=== PATIENT | male | born 1940 | race Caucasian/White ===

== ENCOUNTER 2018-07-01 11:50 | Inpatient (IN) ==
[2018-07-01] MEDS ORDERED: Melatonin 3 MG TABLET PO PRN (15:43)
[2018-07-01] MEDS ORDERED: Acetaminophen 325 MG TABLET PO PRN (15:43)
[2018-07-01] MEDS: Ipratropium/Albuterol Neb 3 ML IH SCH ×3 (16:51→23:48)
[2018-07-01] MEDS: Furosemide 40 MG TABLET PO SCH (17:00)
[2018-07-01] MEDS ORDERED: *HR* Warfarin 2 MG TABLET PO SCH (18:00)
[2018-07-01] MEDS ORDERED: traZODone 50 MG TABLET PO PRN (21:00)
[2018-07-01] MEDS: Gabapentin 100 MG CAPSULE PO SCH (21:27)
[2018-07-02] MEDS: Ipratropium/Albuterol Neb 3 ML IH SCH ×3 (04:00→11:45)
[2018-07-02 06:23] LABS: Eosinophils # 0.3 K/mcL (0.0-0.6); Hematocrit 40.6 % (37.5-50.1); Hemoglobin 12.6 g/dL (12.9-16.9); Mean Corpuscular Hemoglobin 28.6 pg (28.0-33.3); Mean Corpuscular Volume 92.1 fL (83.0-100.0); Mean Platelet Volume 9.3 fL (9.4-12.4); Platelet Count 236 K/mcL (140-400); Red Blood Count 4.41 M/mcL (4.19-5.50); Red Cell Distribution Width 18.9 % (11.5-14.5)
[2018-07-02 06:33] LABS: INR 1.7; Prothrombin Time 19.2 Seconds (9.4-12.1)
[2018-07-02 06:36] LABS: Activated Partial Thrombo Time 41.2 Seconds (26.0-36.0)
[2018-07-02 06:43] LABS: BUN/Creatinine Ratio 9 (6-26); Blood Urea Nitrogen 10 mg/dL (8-23); Calcium 8.5 mg/dL (8.6-10.3); Carbon Dioxide 34 mEq/L (23-29); Chloride 98 mEq/L (98-107); Glucose 105 mg/dL (70-105); Osmolality,Calculated 285 (280-300); Sodium 138 mEq/L (136-145); eGFR For Non-African Americans > 60 (> 60)
[2018-07-02 07:33] LABS: Lymphocytes # 1.2 K/mcL (0.6-4.6); Monocytes # 0.9 K/mcL (0.0-1.3); Neutrophils # 4.2 K/mcL (1.6-8.9)
[2018-07-02 07:39] LABS: Anisocytosis 1+ (Not Present)
[2018-07-02 07:40] LABS: Hypochromasia Present (Not Present); Platelet Estimate Normal (Normal); Polychromasia 1+ (Not Present); Toxic Granulation Present (Not Present)
[2018-07-02] MEDS: Multivit/Ca/Min/Fe/FA 1 TAB TABLET PO SCH (10:21)
[2018-07-02] MEDS: Furosemide 40 MG TABLET PO SCH (10:21)
[2018-07-02] MEDS: Folic Acid 1 MG TABLET PO SCH (10:21)
[2018-07-02] MEDS: *HR* Amiodarone 200 MG TABLET PO SCH (10:21)
[2018-07-02] MEDS: Aspirin 81 MG TAB.CHEW PO SCH (10:21)
[2018-07-02] MEDS: Cholecalciferol (D-3) 1,000 UNIT TABLET PO SCH (10:21)
[2018-07-02] MEDS: Vitamin B Complex/Vit C/Vit E 1 EACH TABLET PO SCH (10:21)
--- NOTE | 2018-07-02 13:19 | Internal Med History&Physical ---
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 And isosorbide and Lanoxin. (2) Paroxysmal A-fib Current visit: No Status: Chronic Continue Coumadin and monitor PT/INR. (3) COPD with emphysema Current visit: No Status: Acute Continue duo nebs but change to prn. Add Symbicort. Order chest CT to follow- up on abnormality seen October 2017. Qualifiers: Emphysema type: centrilobular Qualified Code(s): J43.2 - Centrilobular emphysema (4) CAD (coronary artery disease) Current visit: No Status: Chronic Status post [facility] May 2018 with CHRISTINE in mid LAD. Continue aspirin and Plavix. Add Imdur. Qualifiers: Coronary Disease-Associated Artery/Lesion type: [place] artery [place] vs. transplanted heart: [place] heart Associated angina: angina presence unspecified Qualified Code(s): I25.10 - Atherosclerotic heart disease of [place] coronary artery without angina pectoris (5) Hypomagnesemia Current visit: No Status: Acute Check magnesium level in a.m. (6) Anemia Current visit: Yes Status: Acute Order anemia testing in a.m. Qualifiers: Anemia type: unspecified type Qualified Code(s): D64.9 - Anemia, unspecified Internal Medicine - H&P: HPI Chief complaint: CHF, AF with RVR Admitted From: Hospital to Hospital Transfer Plans for Post Hospital Care: Home History of present illness: Mr. Antoine is a 77 year old male who was transferred to [facility] swing bed after [facility] stay June 21-July 01 after admission for AF with RVR, acute respiratory insufficiency, and exacerbation of heart failure. He had LHC which showed LMCA free of disease, LAD with 70% stenosis in the midportion with CHRISTINE stent placement, circumflex and first marginal free of disease, and 50% stenosis in the mid RCA. He was admitted to [facility] swing bed for ongoing care needs prior to returning to independent living. He has chronic atrial fibrillation and is on Coumadin. Cardioversion was attempted recently with inability to maintain NSR. He has been continued on amiodarone. Aspirin and Plavix been prescribed for recent stent placement. He denies hypertension. Echocardiogram 05/24/2018 showed LVEF of 45%. There was indeterminate diastolic function. There was mild tricuspid regurgitation and mild pulmonary hypertension with RVSP estimate not recorded. There was biatrial enlargement. The interventricular septum thickness was elevated at 1.18 cm. He has had remote AAA repair. He denies DVT or pulmonary embolus. Past Med Surg Social Fam HX - Past Medical History Medical history: aortic aneurysm, arthritis, CHF, COPD, coronary artery disease , RA, renal disease Additional medical history: hydrocele Psychiatric history: no psych history - Past Surgical History Surgical History: non-contributory Additional surgical history: AAA repair - Social History Smoking Status: Former smoker Smokeless Tobacco Status: No Alcohol use: none Drug use: none - Family History Father Family Member Ethnicity: Non- Living Status: Hx Family Endocrine Disorder: Yes (DM) Mother Family Member Ethnicity: Non- Living Status: Hx Family Endocrine Disorder: Yes (DM) Brother Family Member Ethnicity: Non- Living Status: Still Living Sister Family Member Ethnicity: Non- Living Status: Still Living Son Adopted: No Family Member Ethnicity: Non- Living Status: Still Living Hx Family Cardiac Disorders: No Hx Family Respiratory Disorders: No Hx Family Cancer: Yes Hx Family GI Disorders: No Hx Family Endocrine Disorder: No Hx Family Neuromuscular Disorders: No Hx Family Neurologic Disorders: No Hx Family HEENT Disorders: No Hx Family Autoimmune Disorders: No Internal Medicine - H&P: Meds Aspirin 81 mg PO DAILY #0 11/29/17 [History] Calcium Carbonate [Calcium] 600 mg PO DAILY 11/29/17 [History] Cholecalciferol (D-3) [Vitamin D] 5,000 unit PO SA #0 11/29/17 [History] Ferrous Sulfate 325 mg PO DAILY 11/29/17 [History] Folic Acid 1 mg PO DAILY 11/29/17 [History] Methotrexate [Otrexup] 7.5 mg PO WE 11/29/17 [History] Mv-Mn/FA/Vit K/Lycop/Lut/Coq10 [Daily Multivitamin Capsule] 1 tab PO DAILY #0 [History] Vitamin B Complex [B Complex] 1 tab PO DAILY #0 11/29/17 [History] Warfarin [Coumadin] 1 mg PO TUSA #0 11/29/17 [History] Melatonin [Melatin] 9 mg PO HS PRN 02/23/18 [History] Warfarin [Coumadin] 2 mg PO SUMOWETHFR 02/23/18 [History] traZODone [TraZODone] 50 - 100 mg PO HS PRN 02/23/18 [History] Acetaminophen [Tylenol] 650 mg PO Q6HR PRN tablet 02/25/18 [Rx] GuaiFENesin ER [Mucinex] 600 mg PO BID PRN tbbp.12hr 02/25/18 [Rx] Ipratropium/Albuterol Neb [Duoneb] 3 ml IH [id number] inhsol 02/25/18 [Rx] Amiodarone [Cordarone] 200 mg PO DAILY 06/04/18 [History] Atorvastatin [Lipitor] 40 mg PO HS 06/04/18 [History] Furosemide [Lasix] 40 mg PO BID 06/04/18 [History] Gabapentin [Neurontin] 200 mg PO HS 06/04/18 [History] Potassium Chloride [K-Tab ER] 40 meq PO BID 06/04/18 [History] Clopidogrel [Plavix] 75 mg PO DAILY 30 Days #30 tablet 07/01/18 [Rx] 3 Allergy/AdvReac Type Severity Reaction Status Date / Time sulfamethoxazole AdvReac Itching Verified 06/21/18 14:23 [From Bactrim] trimethoprim [From Bactrim] AdvReac Itching Verified 06/21/18 14:23 All Systems PM: A 10-system review of systems was performed and is negative for pertinent findings except as documented above in the HPI. Review of systems: Gen.: His weight has increased from 111.8 kg on 11/29/2017 to 118.189 kg today. Cardiovascular: As per history of present illness Respiratory: He smoked from age [age] up to one and half packs per day. He reports changing to cigars the last few years of smoking. PFTs done 04/06/2018 showed FVC 57% predicted, FEV1 43% predicted, FEV1/FVC 54%, MVV 48% predicted, RV 82% predicted, TLC 67% predicted, and DLCO (uncorrected)27%. He reports using oxygen at bedtime. GI: He denies disorders of his liver gallbladder or exocrine pancreas : He denies hematuria dysuria or kidney stones Neurologic: He denies large distribution strokes or seizures. Endocrine: He denies diabetes thyroid disease or hyperlipidemia Hematology/oncology: He has anemia on labs in the past week. He denies internal malignancies or blood disorders. Psychiatric: He has depression but denies anxiety other mental health issues [place] skeletal: He has DJD and history of rheumatoid arthritis. He denies gout or other bone joint or muscle disorders. - Constitutional Vitals: Temp Pulse Resp BP Pulse Ox 98.2 F 93 18 131/80 90 07/02/18 07:06 07/02/18 07:06 07/02/18 07:06 07/02/18 07:06 07/02/18 11:46 Exam: Gen.: He is a well-developed well-nourished male lying in bed who appears dyspneic at rest. HEENT: Head is atraumatic and normocephalic. Eyes: EOMI. There is no scleral icterus. Mouth: Mucosa is moist. Neck: Supple and nontender. There is no thyromegaly or adenopathy noted. Heart: Regular without murmurs gallops or ectopics Lungs: Has diminished breath sounds diffusely. No wheezes egophony or inspiratory crackles are heard. Abdomen: Soft and nontender. No masses or guarding are noted. Extremities: He has severe chronic venous stasis pigmentation changes of his lower legs and feet. He has woody edema and 1-2+ pitting edema of his legs and dorsum of the feet. He has dependent edema of his arms. The left arm is noticeably more edematous than the right. Dorsalis pedis and posterior tibial pulses are not palpable. Neurologic: Mental status: He is talkative and seems to be a reliable historian. Cranial nerves: Smile is symmetric. Forehead wrinkles bilaterally. Tongue protrudes midline. EOMI. He is slightly hard of hearing. Motor: There is no pronator drift. Cerebellar: Finger to nose is intact bilaterally. Skin: Warm and dry. He has leg discoloration with woody edema as per above. Internal Med - H&P Results - Labs CBC & Chem 7: 07/02/18 06:05 07/02/18 06:05 Labs: Short CBC 07/02/18 Range/Units 06:05 WBC 6.7 (4.3-11.1) K/mcL Hgb 12.6 L (12.9-16.9) g/dL Hct 40.6 (37.5-50.1) % Plt Count 236 (140-400) K/mcL Neutrophils # 4.2 (1.6-8.9) K/mcL BMP 07/02/18 06:05 Sodium 138 Potassium 4.0 Chloride 98 Carbon Dioxide 34 H BUN 10 Creatinine 1.07 Glucose 105 Calcium 8.5 L
[2018-07-02] MEDS ORDERED: Ipratropium/Albuterol Neb 3 ML IH PRN (13:44)
[2018-07-02] MEDS: Isosorbide MONOnitrate (24 HR) 30 MG TAB.ER.24H PO SCH (16:24)
[2018-07-02] MEDS: *HR* Digoxin 0.125 MG TABLET PO SCH (16:25)
[2018-07-02] MEDS: Bumetanide 1 MG TABLET PO SCH (16:28)
[2018-07-02] MEDS: Oxymetazoline Nasal SPRAY BOTTLE NS SCH (16:34)
[2018-07-02] MEDS: *HR* Warfarin 5 MG TABLET PO SCH (17:12)
[2018-07-02] MEDS: Gabapentin 100 MG CAPSULE PO SCH (20:17)
[2018-07-03 06:16] LABS: Basophils % 0.3 %; Eosinophils # 0.4 K/mcL (0.0-0.6); Hematocrit 39.3 % (37.5-50.1); Hemoglobin 12.2 g/dL (12.9-16.9); Immature Granulocytes % 0.6 % (0-4); Lymphocytes # 1.9 K/mcL (0.6-4.6); Lymphocytes % 20.9 %; Mean Corpuscular Hemoglobin 28.8 pg (28.0-33.3); Mean Corpuscular Volume 92.9 fL (83.0-100.0); Mean Platelet Volume 9.9 fL (9.4-12.4); Monocytes # 1.5 K/mcL (0.0-1.3); Monocytes % 16.4 %; Neutrophils # 5.3 K/mcL (1.6-8.9); Platelet Count 261 K/mcL (140-400); Red Blood Count 4.23 M/mcL (4.19-5.50); Red Cell Distribution Width 18.8 % (11.5-14.5); Segmented Neutrophils % 57.8 %
[2018-07-03] MEDS: Oxymetazoline Nasal SPRAY BOTTLE NS SCH ×2 (06:28→18:37)
[2018-07-03] MEDS: Bumetanide 1 MG TABLET PO SCH ×2 (06:28→18:40)
[2018-07-03] MEDS: *HR* Amiodarone 200 MG TABLET PO SCH (08:21)
[2018-07-03] MEDS: Aspirin 81 MG TAB.CHEW PO SCH (08:21)
[2018-07-03] MEDS: Multivit/Ca/Min/Fe/FA 1 TAB TABLET PO SCH (08:22)
[2018-07-03] MEDS: Folic Acid 1 MG TABLET PO SCH (08:22)
[2018-07-03] MEDS: Vitamin B Complex/Vit C/Vit E 1 EACH TABLET PO SCH (08:22)
[2018-07-03] MEDS: Cholecalciferol (D-3) 1,000 UNIT TABLET PO SCH (08:22)
[2018-07-03] MEDS: *HR* Digoxin 0.125 MG TABLET PO SCH ×2 (08:25→08:35)
[2018-07-03] MEDS: Isosorbide MONOnitrate (24 HR) 30 MG TAB.ER.24H PO SCH (08:33)
[2018-07-03 10:53] LABS: % Iron Saturation 9 % (20-55); Iron 21 mcg/dL (65-175); Transferrin 166 mg/dL (203-362)
[2018-07-03 11:06] LABS: Ferritin 405 ng/mL (20-250)
[2018-07-03 11:11] LABS: Folate 13.8 ng/mL (3.0-16.0)
[2018-07-03] MEDS ORDERED: Levofloxacin 750 MG/150 ML 750 MG/150 ML BAG IVPB ONE (14:25)
[2018-07-03] MEDS ORDERED: Piperacillin/Tazobactam 3.375 GM in 0.9 % Sodium Chloride Mini Bag 100 ML IVPB SCH ×2 (14:30→18:00)
[2018-07-03] MEDS ORDERED: *HR* Warfarin 2 MG TABLET PO SCH (18:00)
--- NOTE | 2018-07-03 18:21 | Discharge Summary ---
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 transplanted heart: [place] heart Associated angina: angina presence unspecified Qualified Code(s): I25.10 - Atherosclerotic heart disease of [place] coronary artery without angina pectoris (7) Hypomagnesemia Priority: Secondary Status: Acute (8) Anemia Priority: Secondary Status: Acute Qualifiers: Anemia type: unspecified type Qualified Code(s): D64.9 - Anemia, unspecified Hospital course: Mr. Antoine is a 77 year old male who was transferred to [facility] swing bed after [facility] stay June 21-July 01 after admission for AF with RVR, acute respiratory insufficiency, and exacerbation of heart failure. He had LHC which showed LMCA free of disease, LAD with 70% stenosis in the midportion with CHRISTINE stent placement, circumflex and first marginal free of disease, and 50% stenosis in the mid RCA. He was admitted to [facility] swing bed for ongoing care needs prior to returning to independent living. Initial orders were written by the discharging physician at [facility]. I saw him on July 02 and performed a swing bed history and physical. Chest CT was done to further evaluate abnormality seen on October [address] showed superior segment right lower lobe mass with central cavitation measuring 4.5 x 4.6 cm suspicious for neoplasm. There was multifocal bilateral airspace disease likely representing pneumonia in the right middle and right lower lobes. I discussed the CT findings with patient and his family on July 03. He wished to be transferred to [facility] for further workup for lung cancer. He was started on IV Zosyn and Levaquin for pneumonia following drawing blood cultures while at [facility]. He was changed from Lasix to Bumex. Lanoxin and isosorbide were started. - Time Spent with Patient Total time spent providing and/or coordinating discharge services: - Discharge Medications Home Medications: Aspirin 81 mg PO DAILY #0 11/29/17 [History] Calcium Carbonate [Calcium] 600 mg PO DAILY 11/29/17 [History] Cholecalciferol (D-3) [Vitamin D] 5,000 unit PO SA #0 11/29/17 [History] Ferrous Sulfate 325 mg PO DAILY 11/29/17 [History] Folic Acid 1 mg PO DAILY 11/29/17 [History] Methotrexate [Otrexup] 7.5 mg PO WE 11/29/17 [History] Mv-Mn/FA/Vit K/Lycop/Lut/Coq10 [Daily Multivitamin Capsule] 1 tab PO DAILY #0 [History] Vitamin B Complex [B Complex] 1 tab PO DAILY #0 11/29/17 [History] Warfarin [Coumadin] 1 mg PO TUSA #0 11/29/17 [History] Melatonin [Melatin] 9 mg PO HS PRN 02/23/18 [History] Warfarin [Coumadin] 2 mg PO SUMOWETHFR 02/23/18 [History] traZODone [TraZODone] 50 - 100 mg PO HS PRN 02/23/18 [History] Acetaminophen [Tylenol] 650 mg PO Q6HR PRN tablet 02/25/18 [Rx] GuaiFENesin ER [Mucinex] 600 mg PO BID PRN tbbp.12hr 02/25/18 [Rx] Ipratropium/Albuterol Neb [Duoneb] 3 ml IH [id number] inhsol 02/25/18 [Rx] Amiodarone [Cordarone] 200 mg PO DAILY 06/04/18 [History] Atorvastatin [Lipitor] 40 mg PO HS 06/04/18 [History] Furosemide [Lasix] 40 mg PO BID 06/04/18 [History] Gabapentin [Neurontin] 200 mg PO HS 06/04/18 [History] Potassium Chloride [K-Tab ER] 40 meq PO BID 06/04/18 [History] Clopidogrel [Plavix] 75 mg PO DAILY 30 Days #30 tablet 07/01/18 [Rx] Allergies/Adverse Reactions: 3 Allergy/AdvReac Type Severity Reaction Status Date / Time sulfamethoxazole AdvReac Itching Verified 06/21/18 14:23 [From Bactrim] trimethoprim [From Bactrim] AdvReac Itching Verified 06/21/18 14:23 Date of admission: 07/01/18 13:40 Primary care physician: Mike Villar MD Consults: 07/01/18 15:32 Consult to Occupational Therapy [CONS] Routine Comment: eval, develop, and implement POC Reason for Consult: eval, develop, and implement POC Does patient have active BEDREST order?: No Is patient medically & hemodynamically stable?: Yes Consult to Physical Therapy [CONS] Routine Comment: eval, develop, and implement POC Reason for Consult: eval, develop, and implement POC Does patient have active BEDREST order?: No Is patient medically & hemodynamically stable?: Yes Consult to Library [employer] [CONS] Routine Reason for SW Consult: will need HH - Constitutional Vitals: Temp Pulse Resp BP Pulse Ox 99 F 72 20 97/58 93 07/03/18 06:43 07/03/18 11:19 07/03/18 06:43 07/03/18 06:43 07/03/18 11:19 - Patient Status Disposition: Transfer Other - Discharge Instructions
[2018-07-03] MEDS: *HR* Warfarin 5 MG TABLET PO SCH (18:37)
[2018-07-03 19:22] VITALS: BP 98/60
[2018-07-03] MEDS: Gabapentin 100 MG CAPSULE PO SCH (20:43)
[2018-07-04] MEDS ORDERED: *HR* Methotrexate 2.5 MG TABLET PO SCH (15:43)
== END 2018-07-03 20:06 | disposition other institution (70) | DRG 308 ==
LOC: INPPIK 13:40
PROVIDERS: ADMIT Internal Medicine; ATTEND Internal Medicine

== ENCOUNTER 2018-07-10 14:31 | Inpatient (IN) ==
[2018-07-10] MEDS: Ipratropium/Albuterol Neb 3 ML IH SCH ×2 (16:50→20:24)
[2018-07-10] MEDS: acetaZOLAMIDE 250 MG TABLET PO SCH ×2 (17:04→20:44)
[2018-07-10] MEDS: *HR* Warfarin 2 MG TABLET PO SCH (17:05)
[2018-07-10] MEDS: Furosemide 40 MG TABLET PO SCH (17:05)
[2018-07-10] MEDS: Gabapentin 100 MG CAPSULE PO SCH (20:43)
[2018-07-10] MEDS: Melatonin 3 MG TABLET PO PRN (20:44)
[2018-07-10] MEDS: traZODone 50 MG TABLET PO PRN (20:44)
[2018-07-11] MEDS: Ipratropium/Albuterol Neb 3 ML IH SCH ×7 (00:28→23:55)
[2018-07-11] MEDS: acetaZOLAMIDE 250 MG TABLET PO SCH ×3 (08:48→20:52)
[2018-07-11] MEDS: *HR* Amiodarone 200 MG TABLET PO SCH (08:48)
[2018-07-11] MEDS: Vitamin B Complex/Vit C/Vit E 1 EACH TABLET PO SCH (08:48)
[2018-07-11] MEDS: Aspirin 81 MG TAB.CHEW PO SCH (08:48)
[2018-07-11] MEDS: Multivit/Ca/Min/Fe/FA 1 TAB TABLET PO SCH (08:49)
[2018-07-11] MEDS: Folic Acid 1 MG TABLET PO SCH (08:49)
[2018-07-11] MEDS: levoFLOXacin 250 MG TABLET PO SCH (08:49)
[2018-07-11] MEDS: Furosemide 40 MG TABLET PO SCH ×2 (08:50→16:48)
[2018-07-11] MEDS: *HR* Methotrexate 2.5 MG TABLET PO SCH (08:52)
[2018-07-11] MEDS: *HR* Warfarin 2 MG TABLET PO SCH (16:48)
--- NOTE | 2018-07-11 18:22 | Internal Med History&Physical ---
Date of Encounter: 07/11/18 Time of Encounter: 17:50 Assessment and Plan (1) Multifocal pneumonia Current visit: No Status: Acute Continue Levaquin and Augmentin to complete 14 day course. Will add lactobacillus. (2) Paroxysmal A-fib Current visit: No Status: Chronic Presently in normal sinus rhythm. Continue amiodarone. Continue Coumadin and monitor pro times. 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 Start ferrous sulfate with vitamin C in a.m. Qualifiers: Anemia type: unspecified type Qualified Code(s): D64.9 - Anemia, unspecified (5) CAD (coronary artery disease) Current visit: No Status: Chronic LHC with CHRISTINE stent in LAD May 2018. Continue aspirin and Plavix. Qualifiers: Coronary Disease-Associated Artery/Lesion type: [place] artery [place] vs. transplanted heart: [place] heart Associated angina: without angina Qualified Code(s): I25.10 - Atherosclerotic heart disease of [place] coronary artery without angina pectoris (6) Physical deconditioning Current visit: No Status: Acute PT and OT evaluations with ongoing intervention will be done Internal Medicine - H&P: HPI Chief complaint: Cavitary pneumonia Admitted From: Hospital to Hospital Transfer Plans for Post Hospital Care: Home History of present illness: Mr. Antoine is a 77 year old male who was discharged to [facility] swing bed following a July 03 [facility] hospitalization. He was transferred to [facility] June after the CT showed superior segment right lower lobe mass with central cavitation measuring 4.5 x 4.6 cm suspicious for neoplasm. At [facility] he underwent bronchoscopy with BAL. Cultures and cytology were negative. Was given empiric IV vancomycin and Levaquin and later changed to IV Zosyn. He was discharged to [facility] swing bed on oral Levaquin and Augmentin for 9 days to complete a 14 day treatment course. He smoked from age [age] up to one and half packs per day. He reports changing to cigars the last few years of smoking. PFTs done 04/06/2018 showed FVC 57% predicted, FEV1 43% predicted, FEV1/FVC 54%, MVV 48% predicted, RV 82% predicted, TLC 67% predicted, and DLCO (uncorrected)27%. He reports using oxygen at bedtime. Past Med Surg Social Fam HX - Past Medical History Medical history: aortic aneurysm, arthritis, CHF, COPD, coronary artery disease , RA, renal disease Additional medical history: hydrocele Psychiatric history: no psych history - Past Surgical History Surgical History: angioplasty/stent Additional surgical history: AAA repair - Social History Smoking Status: Former smoker Smokeless Tobacco Status: No Alcohol use: none Drug use: none - Family History Father Family Member Ethnicity: Non- Living Status: Hx Family Endocrine Disorder: Yes (DM) Mother Family Member Ethnicity: Non- Living Status: Hx Family Endocrine Disorder: Yes (DM) Brother Family Member Ethnicity: Non- Living Status: Still Living Sister Family Member Ethnicity: Non- Living Status: Still Living Son Adopted: No Family Member Ethnicity: Non- Living Status: Still Living Hx Family Cardiac Disorders: No Hx Family Respiratory Disorders: No Hx Family Cancer: Yes Hx Family GI Disorders: No Hx Family Endocrine Disorder: No Hx Family Neuromuscular Disorders: No Hx Family Neurologic Disorders: No Hx Family HEENT Disorders: No Hx Family Autoimmune Disorders: No Internal Medicine - H&P: Meds Aspirin 81 mg PO DAILY #0 11/29/17 [History] Calcium Carbonate [Calcium] 600 mg PO DAILY 11/29/17 [History] Cholecalciferol (D-3) [Vitamin D] 5,000 unit PO SA #0 11/29/17 [History] Ferrous Sulfate 325 mg PO DAILY 11/29/17 [History] Folic Acid 1 mg PO DAILY 11/29/17 [History] Methotrexate [Otrexup] 7.5 mg PO WE 11/29/17 [History] Mv-Mn/FA/Vit K/Lycop/Lut/Coq10 [Daily Multivitamin Capsule] 1 tab PO DAILY #0 [History] Vitamin B Complex [B Complex] 1 tab PO DAILY #0 11/29/17 [History] Warfarin [Coumadin] 1 mg PO TUSA #0 11/29/17 [History] Melatonin [Melatin] 9 mg PO HS PRN 02/23/18 [History] Warfarin [Coumadin] 2 mg PO SUMOWETHFR 02/23/18 [History] traZODone [TraZODone] 50 - 100 mg PO HS PRN 02/23/18 [History] Acetaminophen [Tylenol] 650 mg PO Q6HR PRN tablet 02/25/18 [Rx] GuaiFENesin ER [Mucinex] 600 mg PO BID PRN tbbp.12hr 02/25/18 [Rx] Ipratropium/Albuterol Neb [Duoneb] 3 ml IH [id number] inhsol 02/25/18 [Rx] Amiodarone [Cordarone] 200 mg PO DAILY 06/04/18 [History] Atorvastatin [Lipitor] 40 mg PO HS 06/04/18 [History] Furosemide [Lasix] 40 mg PO BID 06/04/18 [History] Gabapentin [Neurontin] 200 mg PO HS 06/04/18 [History] Potassium Chloride [K-Tab ER] 40 meq PO BID 06/04/18 [History] Clopidogrel [Plavix] 75 mg PO DAILY 30 Days #30 tablet 07/01/18 [Rx] acetaZOLAMIDE [Diamox] 125 mg PO TID #90 tablet 07/09/18 [Rx] Amoxicillin/Clavulanate [Augmentin] 875 mg PO BIDWM 9 Days #18 tablet 07/10/18 [ Rx] levoFLOXacin [Levaquin] 750 mg PO DAILY 9 Days #9 tablet 07/10/18 [Rx] 3 Allergy/AdvReac Type Severity Reaction Status Date / Time sulfamethoxazole AdvReac Itching Verified 07/03/18 21:47 [From Bactrim] trimethoprim [From Bactrim] AdvReac Itching Verified 07/03/18 21:47 All Systems PM: A 10-system review of systems was performed and is negative for pertinent findings except as documented above in the HPI. Review of systems: Review of systems from his recent [facility] hospitalization were reviewed and revised as below. Gen.: His weight has increased from 111.8 kg on 11/29/2017 to 113.6 kg today. Cardiovascular: He denies hypertension. He had LHC during his May 2018 [facility] stay which showed LMCA free of disease, LAD with 70% stenosis in the midportion with CHRISTINE stent placement, circumflex and first marginal free of disease, and 50 % stenosis in the mid RCA. He has paroxysmal atrial fibrillation and is on Coumadin. Cardioversion was attempted recently with inability to maintain NSR. He has been continued on amiodarone. Aspirin and Plavix been prescribed for recent stent placement. Echocardiogram 05/24/2018 showed LVEF of 45%. There was indeterminate diastolic function. There was mild tricuspid regurgitation and mild pulmonary hypertension with RVSP estimate not recorded. There was biatrial enlargement. The interventricular septum thickness was elevated at 1.18 cm. He has had remote AAA repair. He denies DVT or pulmonary embolus. Respiratory: He smoked from age [age] up to one and half packs per day. He reports changing to cigars the last few years of smoking. PFTs done 04/06/2018 showed FVC 57% predicted, FEV1 43% predicted, FEV1/FVC 54%, MVV 48% predicted, RV 82% predicted, TLC 67% predicted, and DLCO (uncorrected)27%. He reports using oxygen at bedtime. GI: He denies disorders of his liver gallbladder or exocrine pancreas : He denies hematuria dysuria or kidney stones Neurologic: He denies large distribution strokes or seizures. Endocrine: He denies diabetes thyroid disease or hyperlipidemia Hematology/oncology: He has anemia but denies internal malignancies or blood disorders. Psychiatric: He has depression but denies anxiety other mental health issues [place] skeletal: He has DJD and history of rheumatoid arthritis. He denies gout or other bone joint or muscle disorders. - Constitutional Vitals: Temp Pulse Resp BP Pulse Ox 98.3 F 82 18 97/55 94 07/11/18 07:18 07/11/18 15:53 07/11/18 15:53 07/11/18 15:53 07/11/18 15:53 Exam: Gen.: He is a well-developed well-nourished male resting comfortably in bed who appears in no acute distress at present time HEENT: Head is atraumatic and normocephalic. Eyes: EOMI. There is no scleral icterus. Mouth: Mucosa is moist. Neck: Supple and nontender. There is no thyromegaly or adenopathy noted. Heart: Regular without murmurs gallops or ectopics. Lungs: He has diminished breath sounds diffusely. No wheezes or crackles are heard. Abdomen: Soft and nontender. No masses or guarding are noted. Extremities: He has chronic venous stasis pigmentation changes bilaterally in his lower legs. 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 There is 2-3+ edema of his dorsum of the feet and lower legs bilaterally. He also has dependent edema around his elbows. He has mild DJD changes of his hands. There is slight ulnar deviation of the right fingers. Neurologic: Mental status: He is talkative and a good historian. Cranial nerves : Smile is symmetric. Forehead wrinkles bilaterally. Tongue protrudes midline. EOMI. Motor: There is no pronator drift. Cerebellar: Finger to nose is intact bilaterally. Skin: Warm and dry
[2018-07-11] MEDS: Ammonium Lactate 30 APPL/225 GM BOTTLE TP SCH (20:53)
[2018-07-11] MEDS: Gabapentin 100 MG CAPSULE PO SCH (20:53)
[2018-07-11] MEDS: Lactobacillus 1 EACH CAP.SPRINK PO SCH (20:53)
[2018-07-12 00:21] LABS: ABG Base Excess 7 mEq/L (-2 to 3); ABG HCO3 34 mEq/L (21-27); ABG Oxygen Saturation 94 % (95-98); ABG PCO2 58 mmHg (35-45); ABG PH 7.38 pH Units (7.32-7.45); ABG PO2 76 mmHg (85-104); ABG TCO2 36 mEq/L (20-26)
[2018-07-12] MEDS: Ipratropium/Albuterol Neb 3 ML IH SCH ×5 (04:04→20:33)
[2018-07-12] MEDS: Ascorbic Acid 500 MG TABLET PO SCH (06:14)
[2018-07-12 06:45] LABS: Basophils % 0.3 %; Eosinophils # 0.2 K/mcL (0.0-0.6); Eosinophils % 1.8 %; Hematocrit 38.1 % (37.5-50.1); Hemoglobin 11.6 g/dL (12.9-16.9); Immature Granulocytes % 0.5 % (0-4); Lymphocytes # 1.2 K/mcL (0.6-4.6); Lymphocytes % 11.6 %; Mean Corpuscular HGB Conc 30.4 g/dL (31.6-35.5); Mean Corpuscular Hemoglobin 28.2 pg (28.0-33.3); Mean Corpuscular Volume 92.5 fL (83.0-100.0); Mean Platelet Volume 9.5 fL (9.4-12.4); Monocytes # 1.1 K/mcL (0.0-1.3); Monocytes % 10.9 %; Neutrophils # 7.6 K/mcL (1.6-8.9); Platelet Count 252 K/mcL (140-400); Red Blood Count 4.12 M/mcL (4.19-5.50); Red Cell Distribution Width 19.2 % (11.5-14.5); Segmented Neutrophils % 74.9 %
[2018-07-12 07:02] LABS: Alanine Aminotransferase 22 Units/L (7-52); Albumin 2.4 g/dL (3.5-5.7); Albumin/Globulin Ratio 0.8 (1.1-2.2); Alkaline Phosphatase 73 Units/L (34-104); Aspartate Amino Transferase 27 Units/L (13-39); BUN/Creatinine Ratio 15 (6-26); Bilirubin,Total 0.7 mg/dL (0.3-1.0); Blood Urea Nitrogen 17 mg/dL (8-23); Calcium 8.4 mg/dL (8.6-10.3); Carbon Dioxide 34 mEq/L (23-29); Chloride 100 mEq/L (98-107); Glucose 100 mg/dL (70-105); Magnesium 1.9 mg/dL (1.6-2.6); Osmolality,Calculated 294 (280-300); Potassium 3.5 mEq/L (3.5-5.1); Sodium 141 mEq/L (136-145); Total Protein 5.4 g/dL (6.4-8.9); eGFR For Non-African Americans > 60 (> 60)
[2018-07-12 07:19] LABS: INR 2.9; Prothrombin Time 32.3 Seconds (9.4-12.1)
[2018-07-12] MEDS: *HR* Amiodarone 200 MG TABLET PO SCH (10:08)
[2018-07-12] MEDS: Furosemide 40 MG TABLET PO SCH ×2 (10:09→18:30)
[2018-07-12] MEDS: levoFLOXacin 250 MG TABLET PO SCH (10:09)
[2018-07-12] MEDS: Aspirin 81 MG TAB.CHEW PO SCH (10:09)
[2018-07-12] MEDS: acetaZOLAMIDE 250 MG TABLET PO SCH ×3 (10:09→20:17)
[2018-07-12] MEDS: Folic Acid 1 MG TABLET PO SCH (10:09)
[2018-07-12] MEDS: Multivit/Ca/Min/Fe/FA 1 TAB TABLET PO SCH (10:09)
[2018-07-12] MEDS: Lactobacillus 1 EACH CAP.SPRINK PO SCH ×2 (10:09→21:01)
[2018-07-12] MEDS: Vitamin B Complex/Vit C/Vit E 1 EACH TABLET PO SCH (10:09)
[2018-07-12] MEDS: Ammonium Lactate 30 APPL/225 GM BOTTLE TP SCH ×2 (10:09→21:01)
--- NOTE | 2018-07-12 15:20 | Internal Med Progress Note ---
Date of Encounter: 07/12/18 Time of Encounter: 15:10 - Assessment and plan (1) Multifocal pneumonia Current Visit: No Status: Acute Assessment and plan: July 12. Continue Levaquin and Augmentin with lactobacillus until 2017 (2) Paroxysmal A-fib Current Visit: No Status: Chronic Assessment and plan: July 12. Continue amiodarone and Coumadin. 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 Continue Lasix (4) Anemia Current Visit: No Status: Acute Assessment and plan: July 12. Continue ferrous sulfate with vitamin C Qualifiers: Anemia type: unspecified type Qualified Code(s): D64.9 - Anemia, unspecified (5) CAD (coronary artery disease) Current Visit: No Status: Chronic Assessment and plan: July 12. Continue aspirin and Plavix Qualifiers: Coronary Disease-Associated Artery/Lesion type: [place] artery [place] vs. transplanted heart: [place] heart Associated angina: without angina Qualified Code(s): I25.10 - Atherosclerotic heart disease of [place] coronary artery without angina pectoris (6) Physical deconditioning Current Visit: No Status: Acute Assessment and plan: July 12. Continue PT and OT intervention - Subjective Interval history: July 12. He has no new complaints. He had an episode of hypoxemia last evening. ABG and chest x-ray were ordered and were generally unremarkable. - Constitutional Vitals: Temp Pulse Resp BP Pulse Ox 99.1 F 91 16 86/57 94 07/12/18 07:08 07/12/18 07:08 07/12/18 12:46 07/12/18 07:08 07/12/18 13:33 Exam: He is resting comfortably in bed and appears in no acute distress. His affect is bright and cheerful. He is talkative and states he wants to stay in the hospital only until he can satisfactorily walk enough to return home. I reviewed his medications and lab results. Internal Medicine: Result - Labs CBC & Chem 7: 07/12/18 05:37 07/12/18 05:37 Labs: Short CBC 07/12/18 Range/Units 05:37 WBC 10.2 (4.3-11.1) K/mcL Hgb 11.6 L (12.9-16.9) g/dL Hct 38.1 (37.5-50.1) % Plt Count 252 (140-400) K/mcL Neutrophils # 7.6 (1.6-8.9) K/mcL BMP 07/12/18 05:37 Sodium 141 Potassium 3.5 Chloride 100 Carbon Dioxide 34 H BUN 17 Creatinine 1.17 Glucose 100 Calcium 8.4 L Liver Function 07/12/18 Range/Units 05:37 Total Bilirubin 0.7 (0.3-1.0) mg/dL AST 27 (13-39) Units/L ALT 22 (7-52) Units/L Alkaline Phosphatase 73 (34-104) Units/L Albumin 2.4 L (3.5-5.7) g/dL - ABG Interpretation ABG results: ABG ABG pH 7.38 pH Units (7.32-7.45) 07/12/18 00:18 ABG pCO2 58 mmHg (35-45) H 07/12/18 00:18 ABG pO2 76 mmHg (85-104) L 07/12/18 00:18 ABG O2 Saturation 94 % (95-98) L 07/12/18 00:18 PT/INR, D-dimer PT 32.3 Seconds (9.4-12.1) H 07/12/18 05:37 - Impressions Impressions Chest X-Ray 07/12/18 00:00 IMPRESSION: Stable cardiomegaly with suspected interstitial edema and small left pleural effusion superimposed on a background of emphysema. Right basilar opacity correlates with cavitating masslike airspace disease at the right lung base on comparison CT. D/ / Lukasz Pina / Lukasz Pina Interpreting Provider: Lukasz Pina Consult Discharge Plan - Plan Referrals: Mike Villar MD [Primary Care Provider] - 1 week
[2018-07-12] MEDS: Gabapentin 100 MG CAPSULE PO SCH (21:01)
[2018-07-13] MEDS: Furosemide 40 MG TABLET PO SCH ×2 (00:24→17:05)
[2018-07-13] MEDS: Ipratropium/Albuterol Neb 3 ML IH SCH ×4 (04:20→12:41)
[2018-07-13] MEDS: Ascorbic Acid 500 MG TABLET PO SCH (06:04)
[2018-07-13] MEDS: Folic Acid 1 MG TABLET PO SCH (07:41)
[2018-07-13] MEDS: acetaZOLAMIDE 250 MG TABLET PO SCH ×3 (07:41→21:04)
[2018-07-13] MEDS: levoFLOXacin 250 MG TABLET PO SCH (07:42)
[2018-07-13] MEDS: Multivit/Ca/Min/Fe/FA 1 TAB TABLET PO SCH (07:42)
[2018-07-13] MEDS: Ammonium Lactate 30 APPL/225 GM BOTTLE TP SCH ×2 (07:42→21:07)
[2018-07-13] MEDS: *HR* Amiodarone 200 MG TABLET PO SCH (07:42)
[2018-07-13] MEDS: Lactobacillus 1 EACH CAP.SPRINK PO SCH ×2 (07:42→21:04)
[2018-07-13] MEDS: Vitamin B Complex/Vit C/Vit E 1 EACH TABLET PO SCH (07:43)
[2018-07-13] MEDS: Aspirin 81 MG TAB.CHEW PO SCH (07:50)
[2018-07-13] MEDS ORDERED: Ipratropium/Albuterol Neb 3 ML IH PRN (15:52)
[2018-07-13] MEDS: Gabapentin 100 MG CAPSULE PO SCH (21:05)
[2018-07-14] MEDS: Ascorbic Acid 500 MG TABLET PO SCH (06:33)
[2018-07-14 06:36] LABS: Basophils % 0.3 %; Eosinophils # 0.2 K/mcL (0.0-0.6); Eosinophils % 2.3 %; Hematocrit 37.4 % (37.5-50.1); Hemoglobin 11.4 g/dL (12.9-16.9); Immature Granulocytes % 0.5 % (0-4); Lymphocytes # 1.1 K/mcL (0.6-4.6); Lymphocytes % 11.7 %; Mean Corpuscular HGB Conc 30.5 g/dL (31.6-35.5); Mean Corpuscular Volume 91.9 fL (83.0-100.0); Mean Platelet Volume 8.8 fL (9.4-12.4); Monocytes # 0.7 K/mcL (0.0-1.3); Monocytes % 7.1 %; Neutrophils # 7.5 K/mcL (1.6-8.9); Platelet Count 225 K/mcL (140-400); Red Blood Count 4.07 M/mcL (4.19-5.50); Red Cell Distribution Width 18.6 % (11.5-14.5); Segmented Neutrophils % 78.1 %
[2018-07-14 07:03] LABS: BUN/Creatinine Ratio 16 (6-26); Blood Urea Nitrogen 18 mg/dL (8-23); Calcium 8.4 mg/dL (8.6-10.3); Carbon Dioxide 29 mEq/L (23-29); Chloride 103 mEq/L (98-107); Glucose 113 mg/dL (70-105); Osmolality,Calculated 291 (280-300); Potassium 3.2 mEq/L (3.5-5.1); Sodium 139 mEq/L (136-145); eGFR For Non-African Americans > 60 (> 60)
[2018-07-14] MEDS: Furosemide 40 MG TABLET PO SCH ×2 (08:10→16:08)
[2018-07-14] MEDS: Cholecalciferol (D-3) 1,000 UNIT TABLET PO SCH (08:11)
[2018-07-14] MEDS: Lactobacillus 1 EACH CAP.SPRINK PO SCH ×2 (08:11→20:12)
[2018-07-14] MEDS: Aspirin 81 MG TAB.CHEW PO SCH (08:11)
[2018-07-14] MEDS: Folic Acid 1 MG TABLET PO SCH (08:13)
[2018-07-14] MEDS: levoFLOXacin 250 MG TABLET PO SCH (08:13)
[2018-07-14] MEDS: acetaZOLAMIDE 250 MG TABLET PO SCH ×3 (08:13→20:13)
[2018-07-14] MEDS: Multivit/Ca/Min/Fe/FA 1 TAB TABLET PO SCH (08:14)
[2018-07-14] MEDS: Vitamin B Complex/Vit C/Vit E 1 EACH TABLET PO SCH (08:14)
[2018-07-14] MEDS: *HR* Amiodarone 200 MG TABLET PO SCH (08:14)
[2018-07-14] MEDS: Ammonium Lactate 30 APPL/225 GM BOTTLE TP SCH ×2 (08:15→20:14)
[2018-07-14] MEDS: *HR* Warfarin 2 MG TABLET PO SCH (18:28)
[2018-07-14] MEDS: Gabapentin 100 MG CAPSULE PO SCH (20:12)
[2018-07-15] MEDS: Ascorbic Acid 500 MG TABLET PO SCH (06:28)
[2018-07-15 07:07] LABS: INR 1.7; Prothrombin Time 19.6 Seconds (9.4-12.1)
[2018-07-15] MEDS: levoFLOXacin 250 MG TABLET PO SCH (08:57)
[2018-07-15] MEDS: Aspirin 81 MG TAB.CHEW PO SCH (08:57)
[2018-07-15] MEDS: Lactobacillus 1 EACH CAP.SPRINK PO SCH ×2 (08:57→20:47)
[2018-07-15] MEDS: Folic Acid 1 MG TABLET PO SCH (08:58)
[2018-07-15] MEDS: *HR* Amiodarone 200 MG TABLET PO SCH (08:58)
[2018-07-15] MEDS: acetaZOLAMIDE 250 MG TABLET PO SCH ×3 (08:58→20:48)
[2018-07-15] MEDS: Ammonium Lactate 30 APPL/225 GM BOTTLE TP SCH ×2 (08:58→20:48)
[2018-07-15] MEDS: Vitamin B Complex/Vit C/Vit E 1 EACH TABLET PO SCH (08:58)
[2018-07-15] MEDS: Multivit/Ca/Min/Fe/FA 1 TAB TABLET PO SCH (08:58)
[2018-07-15] MEDS: Furosemide 40 MG TABLET PO SCH ×2 (08:58→18:01)
--- NOTE | 2018-07-15 17:05 | Internal Med Progress Note ---
Date of Encounter: 07/15/18 Time of Encounter: 16:58 - Assessment and plan (1) Multifocal pneumonia Current Visit: No Status: Acute Assessment and plan: July 12. Continue Levaquin and Augmentin with lactobacillus until 2017 (2) Paroxysmal A-fib Current Visit: No Status: Chronic Assessment and plan: July 12. Continue amiodarone and Coumadin. 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 Continue Lasix (4) Anemia Current Visit: No Status: Acute Assessment and plan: July 12. Continue ferrous sulfate with vitamin C Qualifiers: Anemia type: unspecified type Qualified Code(s): D64.9 - Anemia, unspecified (5) CAD (coronary artery disease) Current Visit: No Status: Chronic Assessment and plan: July 12. Continue aspirin and Plavix Qualifiers: Coronary Disease-Associated Artery/Lesion type: [place] artery [place] vs. transplanted heart: [place] heart Associated angina: without angina Qualified Code(s): I25.10 - Atherosclerotic heart disease of [place] coronary artery without angina pectoris (6) Physical deconditioning Current Visit: No Status: Acute Assessment and plan: July 12. Continue PT and OT intervention - Subjective Interval history: July 12. He has no new complaints. He had an episode of hypoxemia last evening. ABG and chest x-ray were ordered and were generally unremarkable. July 15. He has no new complaints. - Constitutional Vitals: Temp Pulse Resp BP Pulse Ox 98.6 F 113 16 110/56 94 07/15/18 08:09 07/15/18 08:09 07/15/18 09:00 07/15/18 08:09 07/15/18 09:00 Exam: He is resting comfortably in bed and appears in no acute distress. His affect is bright and cheerful. I reviewed his medications and lab results. Internal Medicine: Result - Labs CBC & Chem 7: 07/14/18 06:01 07/14/18 06:01 - ABG Interpretation ABG results: ABG ABG pH 7.38 pH Units (7.32-7.45) 07/12/18 00:18 ABG pCO2 58 mmHg (35-45) H 07/12/18 00:18 ABG pO2 76 mmHg (85-104) L 07/12/18 00:18 ABG O2 Saturation 94 % (95-98) L 07/12/18 00:18 PT/INR, D-dimer PT 19.6 Seconds (9.4-12.1) H 07/15/18 05:59 Consult Discharge Plan - Plan Referrals: Mike Villar MD [Primary Care Provider] - 1 week
[2018-07-15] MEDS: *HR* Warfarin 2 MG TABLET PO SCH (18:01)
[2018-07-15] MEDS: Gabapentin 100 MG CAPSULE PO SCH (20:47)
[2018-07-16 05:41] LABS: Basophils % 0.3 %; Eosinophils # 0.2 K/mcL (0.0-0.6); Eosinophils % 1.8 %; Hematocrit 38.1 % (37.5-50.1); Hemoglobin 11.7 g/dL (12.9-16.9); Immature Granulocytes % 0.4 % (0-4); Lymphocytes % 12.1 %; Mean Corpuscular HGB Conc 30.7 g/dL (31.6-35.5); Mean Corpuscular Hemoglobin 28.3 pg (28.0-33.3); Mean Corpuscular Volume 92.3 fL (83.0-100.0); Mean Platelet Volume 9.1 fL (9.4-12.4); Monocytes % 7.9 %; Neutrophils # 9.3 K/mcL (1.6-8.9); Platelet Count 207 K/mcL (140-400); Red Blood Count 4.13 M/mcL (4.19-5.50); Segmented Neutrophils % 77.5 %
[2018-07-16 05:46] LABS: Lymphocytes # 1.5 K/mcL (0.6-4.6)
[2018-07-16 05:52] LABS: INR 1.7; Prothrombin Time 18.9 Seconds (9.4-12.1)
[2018-07-16 06:04] LABS: BUN/Creatinine Ratio 14 (6-26); Blood Urea Nitrogen 15 mg/dL (8-23); Calcium 8.3 mg/dL (8.6-10.3); Carbon Dioxide 29 mEq/L (23-29); Chloride 103 mEq/L (98-107); Glucose 101 mg/dL (70-105); Osmolality,Calculated 287 (280-300); Potassium 3.2 mEq/L (3.5-5.1); Sodium 138 mEq/L (136-145); eGFR For Non-African Americans > 60 (> 60)
[2018-07-16] MEDS: Ascorbic Acid 500 MG TABLET PO SCH (06:29)
[2018-07-16] MEDS: Furosemide 40 MG TABLET PO SCH ×2 (07:56→16:03)
[2018-07-16] MEDS: Aspirin 81 MG TAB.CHEW PO SCH (07:57)
[2018-07-16] MEDS: Vitamin B Complex/Vit C/Vit E 1 EACH TABLET PO SCH (07:57)
[2018-07-16] MEDS: acetaZOLAMIDE 250 MG TABLET PO SCH ×3 (07:57→20:39)
[2018-07-16] MEDS: Folic Acid 1 MG TABLET PO SCH (07:57)
[2018-07-16] MEDS: *HR* Amiodarone 200 MG TABLET PO SCH (07:57)
[2018-07-16] MEDS: levoFLOXacin 250 MG TABLET PO SCH (07:57)
[2018-07-16] MEDS: Lactobacillus 1 EACH CAP.SPRINK PO SCH ×2 (07:57→20:40)
[2018-07-16] MEDS: Multivit/Ca/Min/Fe/FA 1 TAB TABLET PO SCH (07:57)
[2018-07-16] MEDS: Acetaminophen 325 MG TABLET PO PRN (07:58)
[2018-07-16] MEDS: Ammonium Lactate 30 APPL/225 GM BOTTLE TP SCH ×2 (13:00→20:40)
[2018-07-16] MEDS: *HR* Warfarin 2 MG TABLET PO SCH (18:48)
[2018-07-16] MEDS: Gabapentin 100 MG CAPSULE PO SCH (20:40)
[2018-07-17] MEDS: Ascorbic Acid 500 MG TABLET PO SCH (06:12)
[2018-07-17] MEDS: levoFLOXacin 250 MG TABLET PO SCH (09:25)
[2018-07-17] MEDS: Acetaminophen 325 MG TABLET PO PRN (09:25)
[2018-07-17] MEDS: Folic Acid 1 MG TABLET PO SCH (09:26)
[2018-07-17] MEDS: Lactobacillus 1 EACH CAP.SPRINK PO SCH ×2 (09:26→20:40)
[2018-07-17] MEDS: Vitamin B Complex/Vit C/Vit E 1 EACH TABLET PO SCH (09:27)
[2018-07-17] MEDS: Ammonium Lactate 30 APPL/225 GM BOTTLE TP SCH ×2 (09:27→20:42)
[2018-07-17] MEDS: Aspirin 81 MG TAB.CHEW PO SCH (09:27)
[2018-07-17] MEDS: Multivit/Ca/Min/Fe/FA 1 TAB TABLET PO SCH (09:27)
[2018-07-17] MEDS: acetaZOLAMIDE 250 MG TABLET PO SCH ×3 (09:32→20:40)
[2018-07-17] MEDS: *HR* Amiodarone 200 MG TABLET PO SCH (09:32)
[2018-07-17] MEDS: Furosemide 40 MG TABLET PO SCH ×2 (09:32→16:49)
[2018-07-17] MEDS: *HR* Warfarin 2 MG TABLET PO SCH (16:49)
[2018-07-17] MEDS: Gabapentin 100 MG CAPSULE PO SCH (20:40)
[2018-07-18] MEDS: Ascorbic Acid 500 MG TABLET PO SCH (06:23)
[2018-07-18] MEDS: Furosemide 40 MG TABLET PO SCH ×2 (07:46→17:06)
[2018-07-18] MEDS: levoFLOXacin 250 MG TABLET PO SCH (07:46)
[2018-07-18] MEDS: acetaZOLAMIDE 250 MG TABLET PO SCH ×3 (07:46→20:51)
[2018-07-18] MEDS: Multivit/Ca/Min/Fe/FA 1 TAB TABLET PO SCH (07:46)
[2018-07-18] MEDS: Aspirin 81 MG TAB.CHEW PO SCH (07:47)
[2018-07-18] MEDS: Folic Acid 1 MG TABLET PO SCH (07:47)
[2018-07-18] MEDS: *HR* Amiodarone 200 MG TABLET PO SCH (07:47)
[2018-07-18] MEDS: Vitamin B Complex/Vit C/Vit E 1 EACH TABLET PO SCH (07:47)
[2018-07-18] MEDS: Ammonium Lactate 30 APPL/225 GM BOTTLE TP SCH ×2 (07:47→20:51)
[2018-07-18] MEDS: Lactobacillus 1 EACH CAP.SPRINK PO SCH ×2 (07:47→20:51)
[2018-07-18] MEDS: *HR* Methotrexate 2.5 MG TABLET PO SCH (07:52)
--- NOTE | 2018-07-18 15:56 | Internal Med Progress Note ---
Date of Encounter: 07/18/18 Time of Encounter: 15:48 - Assessment and plan (1) Multifocal pneumonia Current Visit: No Status: Acute Assessment and plan: July 12. Continue Levaquin and Augmentin with lactobacillus until 2017 (2) Paroxysmal A-fib Current Visit: No Status: Chronic Assessment and plan: July 12. Continue amiodarone and Coumadin. 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 Continue Lasix (4) Anemia Current Visit: No Status: Acute Assessment and plan: July 12. Continue ferrous sulfate with vitamin C Qualifiers: Anemia type: unspecified type Qualified Code(s): D64.9 - Anemia, unspecified (5) CAD (coronary artery disease) Current Visit: No Status: Chronic Assessment and plan: July 12. Continue aspirin and Plavix Qualifiers: Coronary Disease-Associated Artery/Lesion type: [place] artery [place] vs. transplanted heart: [place] heart Associated angina: without angina Qualified Code(s): I25.10 - Atherosclerotic heart disease of [place] coronary artery without angina pectoris (6) Physical deconditioning Current Visit: No Status: Acute Assessment and plan: July 12. Continue PT and OT intervention - Subjective Interval history: July 12. He has no new complaints. He had an episode of hypoxemia last evening. ABG and chest x-ray were ordered and were generally unremarkable. July 15. He has no new complaints. July 18. He has no new complaints. He saw Dr. Cruz this morning who gave him knee injections bilaterally. - Constitutional Vitals: Temp Pulse Resp BP Pulse Ox 98.9 F 83 16 143/76 96 07/18/18 06:48 07/18/18 06:48 07/18/18 06:48 07/18/18 06:48 07/18/18 06:48 Exam: He is resting comfortably in bed and appears in no acute distress. His affect is bright and cheerful. I reviewed his medications and lab results. Internal Medicine: Result - Labs CBC & Chem 7: 07/16/18 05:05 07/16/18 05:05 - ABG Interpretation ABG results: ABG ABG pH 7.38 pH Units (7.32-7.45) 07/12/18 00:18 ABG pCO2 58 mmHg (35-45) H 07/12/18 00:18 ABG pO2 76 mmHg (85-104) L 07/12/18 00:18 ABG O2 Saturation 94 % (95-98) L 07/12/18 00:18 PT/INR, D-dimer PT 18.9 Seconds (9.4-12.1) H 07/16/18 05:05 Consult Discharge Plan - Plan Referrals: Mike Villar MD [Primary Care Provider] - 1 week
[2018-07-18] MEDS: *HR* Warfarin 2 MG TABLET PO SCH (17:09)
[2018-07-18] MEDS: Gabapentin 100 MG CAPSULE PO SCH (20:51)
[2018-07-19] MEDS: Ascorbic Acid 500 MG TABLET PO SCH (06:11)
[2018-07-19 06:23] LABS: Basophils % 0.1 %; Hemoglobin 11.2 g/dL (12.9-16.9); Immature Granulocytes % 0.7 % (0-4); Lymphocytes # 0.7 K/mcL (0.6-4.6); Lymphocytes % 6.1 %; Mean Corpuscular HGB Conc 31.1 g/dL (31.6-35.5); Mean Corpuscular Hemoglobin 27.8 pg (28.0-33.3); Mean Corpuscular Volume 89.3 fL (83.0-100.0); Mean Platelet Volume 9.9 fL (9.4-12.4); Monocytes # 0.2 K/mcL (0.0-1.3); Neutrophils # 10.3 K/mcL (1.6-8.9); Platelet Count 207 K/mcL (140-400); Red Blood Count 4.03 M/mcL (4.19-5.50); Red Cell Distribution Width 18.9 % (11.5-14.5); Segmented Neutrophils % 91.1 %
[2018-07-19 06:29] LABS: INR 1.7; Prothrombin Time 19.6 Seconds (9.4-12.1)
[2018-07-19 06:40] LABS: BUN/Creatinine Ratio 24 (6-26); Blood Urea Nitrogen 24 mg/dL (8-23); Calcium 8.5 mg/dL (8.6-10.3); Carbon Dioxide 24 mEq/L (23-29); Chloride 107 mEq/L (98-107); Glucose 163 mg/dL (70-105); Osmolality,Calculated 294 (280-300); Potassium 4.4 mEq/L (3.5-5.1); Sodium 138 mEq/L (136-145); eGFR For Non-African Americans > 60 (> 60)
[2018-07-19] MEDS: Acetaminophen 325 MG TABLET PO PRN (09:20)
[2018-07-19] MEDS: Vitamin B Complex/Vit C/Vit E 1 EACH TABLET PO SCH (09:20)
[2018-07-19] MEDS: Multivit/Ca/Min/Fe/FA 1 TAB TABLET PO SCH (09:20)
[2018-07-19] MEDS: acetaZOLAMIDE 250 MG TABLET PO SCH ×3 (09:20→20:58)
[2018-07-19] MEDS: *HR* Amiodarone 200 MG TABLET PO SCH (09:20)
[2018-07-19] MEDS: Aspirin 81 MG TAB.CHEW PO SCH (09:20)
[2018-07-19] MEDS: Lactobacillus 1 EACH CAP.SPRINK PO SCH ×2 (09:21→20:59)
[2018-07-19] MEDS: Folic Acid 1 MG TABLET PO SCH (09:21)
[2018-07-19] MEDS: Ammonium Lactate 30 APPL/225 GM BOTTLE TP SCH ×2 (09:21→20:59)
[2018-07-19] MEDS: levoFLOXacin 250 MG TABLET PO SCH (09:21)
[2018-07-19] MEDS: Furosemide 40 MG TABLET PO SCH ×2 (09:21→17:25)
[2018-07-19] MEDS: *HR* Warfarin 2 MG TABLET PO SCH (17:31)
[2018-07-19] MEDS: Gabapentin 100 MG CAPSULE PO SCH (20:58)
[2018-07-20] MEDS: Ascorbic Acid 500 MG TABLET PO SCH (05:54)
[2018-07-20] MEDS: Ammonium Lactate 30 APPL/225 GM BOTTLE TP SCH ×2 (09:33→22:04)
[2018-07-20] MEDS: levoFLOXacin 250 MG TABLET PO SCH (09:34)
[2018-07-20] MEDS: Folic Acid 1 MG TABLET PO SCH (09:34)
[2018-07-20] MEDS: Furosemide 40 MG TABLET PO SCH ×2 (09:34→18:31)
[2018-07-20] MEDS: Multivit/Ca/Min/Fe/FA 1 TAB TABLET PO SCH (09:34)
[2018-07-20] MEDS: *HR* Amiodarone 200 MG TABLET PO SCH (09:34)
[2018-07-20] MEDS: Aspirin 81 MG TAB.CHEW PO SCH (09:35)
[2018-07-20] MEDS: Vitamin B Complex/Vit C/Vit E 1 EACH TABLET PO SCH (09:35)
[2018-07-20] MEDS: Lactobacillus 1 EACH CAP.SPRINK PO SCH (09:35)
[2018-07-20] MEDS: acetaZOLAMIDE 250 MG TABLET PO SCH ×3 (09:35→21:57)
--- NOTE | 2018-07-20 16:06 | Internal Med Progress Note ---
Date of Encounter: 07/20/18 Time of Encounter: 15:55 - Assessment and plan (1) Multifocal pneumonia Current Visit: No Status: Acute Assessment and plan: July 12. Continue Levaquin and Augmentin with lactobacillus until 2017July 20. Discontinue antibiotics and probiotic. (2) Paroxysmal A-fib Current Visit: No Status: Chronic Assessment and plan: July 12. Continue amiodarone and Coumadin. July 20. Coumadin dose subtherapeutic. Will increase and continue to monitor INR. Continue amiodarone. 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 Continue Lasix (4) Anemia Current Visit: No Status: Acute Assessment and plan: July 12. Continue ferrous sulfate with vitamin C Qualifiers: Anemia type: unspecified type Qualified Code(s): D64.9 - Anemia, unspecified (5) CAD (coronary artery disease) Current Visit: No Status: Chronic Assessment and plan: July 12. Continue aspirin and Plavix Qualifiers: Coronary Disease-Associated Artery/Lesion type: [place] artery [place] vs. transplanted heart: [place] heart Associated angina: without angina Qualified Code(s): I25.10 - Atherosclerotic heart disease of [place] coronary artery without angina pectoris (6) Physical deconditioning Current Visit: No Status: Acute Assessment and plan: July 12. Continue PT and OT intervention - Subjective Interval history: July 12. He has no new complaints. He had an episode of hypoxemia last evening. ABG and chest x-ray were ordered and were generally unremarkable. July 15. He has no new complaints. July 18. He has no new complaints. He saw Dr. Cruz this morning who gave him knee injections bilaterally. July 20. He has no new complaints. He states his knee pain is lessening after the injections 2 days ago - Constitutional Vitals: Temp Pulse Resp BP Pulse Ox 98.6 F 86 18 99/65 93 07/20/18 06:30 07/20/18 06:30 07/20/18 06:30 07/20/18 06:30 07/20/18 06:30 Exam: He has resting comfortably in bed and appears in no acute distress. His affect is overall cheerful. I reviewed his medications and lab results. Internal Medicine: Result - Labs CBC & Chem 7: 07/19/18 05:41 07/19/18 05:41 - ABG Interpretation ABG results: ABG ABG pH 7.38 pH Units (7.32-7.45) 07/12/18 00:18 ABG pCO2 58 mmHg (35-45) H 07/12/18 00:18 ABG pO2 76 mmHg (85-104) L 07/12/18 00:18 ABG O2 Saturation 94 % (95-98) L 07/12/18 00:18 PT/INR, D-dimer PT 19.6 Seconds (9.4-12.1) H 07/19/18 05:41 Consult Discharge Plan - Plan Referrals: Mike Villar MD [Primary Care Provider] - 1 week
[2018-07-20] MEDS: traZODone 50 MG TABLET PO PRN (21:57)
[2018-07-20] MEDS: Melatonin 3 MG TABLET PO PRN (21:57)
[2018-07-20] MEDS: Gabapentin 100 MG CAPSULE PO SCH (21:57)
[2018-07-21] MEDS: Folic Acid 1 MG TABLET PO SCH (10:03)
[2018-07-21] MEDS: Acetaminophen 325 MG TABLET PO PRN (10:03)
[2018-07-21] MEDS: Aspirin 81 MG TAB.CHEW PO SCH (10:03)
[2018-07-21] MEDS: *HR* Amiodarone 200 MG TABLET PO SCH (10:03)
[2018-07-21] MEDS: Cholecalciferol (D-3) 1,000 UNIT TABLET PO SCH (10:03)
[2018-07-21] MEDS: Vitamin B Complex/Vit C/Vit E 1 EACH TABLET PO SCH (10:04)
[2018-07-21] MEDS: Ammonium Lactate 30 APPL/225 GM BOTTLE TP SCH ×2 (10:04→20:25)
[2018-07-21] MEDS: Multivit/Ca/Min/Fe/FA 1 TAB TABLET PO SCH (10:04)
[2018-07-21] MEDS: Ascorbic Acid 500 MG TABLET PO SCH (10:04)
[2018-07-21] MEDS: Furosemide 40 MG TABLET PO SCH ×2 (10:04→16:09)
[2018-07-21] MEDS: acetaZOLAMIDE 250 MG TABLET PO SCH ×3 (10:04→20:24)
[2018-07-21] MEDS: *HR* Warfarin 2 MG TABLET PO SCH (16:09)
[2018-07-21] MEDS: Melatonin 3 MG TABLET PO PRN (20:24)
[2018-07-21] MEDS: Gabapentin 100 MG CAPSULE PO SCH (20:25)
[2018-07-21] MEDS: traZODone 50 MG TABLET PO PRN (20:25)
[2018-07-22] MEDS: Ammonium Lactate 30 APPL/225 GM BOTTLE TP SCH ×2 (09:56→22:14)
[2018-07-22] MEDS: Ascorbic Acid 500 MG TABLET PO SCH (09:56)
[2018-07-22] MEDS: Folic Acid 1 MG TABLET PO SCH (09:57)
[2018-07-22] MEDS: Aspirin 81 MG TAB.CHEW PO SCH (09:57)
[2018-07-22] MEDS: Multivit/Ca/Min/Fe/FA 1 TAB TABLET PO SCH (09:57)
[2018-07-22] MEDS: *HR* Amiodarone 200 MG TABLET PO SCH (09:57)
[2018-07-22] MEDS: Vitamin B Complex/Vit C/Vit E 1 EACH TABLET PO SCH (09:57)
[2018-07-22] MEDS: Furosemide 40 MG TABLET PO SCH ×2 (09:57→16:51)
[2018-07-22] MEDS: acetaZOLAMIDE 250 MG TABLET PO SCH ×3 (09:57→22:11)
[2018-07-22] MEDS: *HR* Warfarin 2 MG TABLET PO SCH (16:51)
[2018-07-22] MEDS: Gabapentin 100 MG CAPSULE PO SCH (22:13)
[2018-07-23] MEDS: Furosemide 40 MG TABLET PO SCH ×2 (07:01→18:33)
[2018-07-23] MEDS: Ascorbic Acid 500 MG TABLET PO SCH (07:01)
[2018-07-23] MEDS: Vitamin B Complex/Vit C/Vit E 1 EACH TABLET PO SCH (08:45)
[2018-07-23] MEDS: Aspirin 81 MG TAB.CHEW PO SCH (08:45)
[2018-07-23] MEDS: acetaZOLAMIDE 250 MG TABLET PO SCH ×3 (08:45→20:34)
[2018-07-23] MEDS: *HR* Amiodarone 200 MG TABLET PO SCH (08:45)
[2018-07-23] MEDS: Folic Acid 1 MG TABLET PO SCH (08:45)
[2018-07-23] MEDS: Multivit/Ca/Min/Fe/FA 1 TAB TABLET PO SCH (08:45)
[2018-07-23] MEDS: Ammonium Lactate 30 APPL/225 GM BOTTLE TP SCH ×2 (10:20→20:37)
--- NOTE | 2018-07-23 12:27 | Internal Med Progress Note ---
Date of Encounter: 07/23/18 Time of Encounter: 12:15 - Assessment and plan (1) Multifocal pneumonia Current Visit: No Status: Acute Assessment and plan: July 12. Continue Levaquin and Augmentin with lactobacillus until 2017July 20. Discontinue antibiotics and probiotic. (2) Paroxysmal A-fib Current Visit: No Status: Chronic Assessment and plan: July 12. Continue amiodarone and Coumadin. July 20. Coumadin dose subtherapeutic. Will increase and continue to monitor INR. Continue amiodarone. July 23. Recheck labs in a.m. 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 Continue Lasix (4) Anemia Current Visit: No Status: Acute Assessment and plan: July 12. Continue ferrous sulfate with vitamin C Qualifiers: Anemia type: unspecified type Qualified Code(s): D64.9 - Anemia, unspecified (5) CAD (coronary artery disease) Current Visit: No Status: Chronic Assessment and plan: July 12. Continue aspirin and Plavix Qualifiers: Coronary Disease-Associated Artery/Lesion type: [place] artery [place] vs. transplanted heart: [place] heart Associated angina: without angina Qualified Code(s): I25.10 - Atherosclerotic heart disease of [place] coronary artery without angina pectoris (6) Physical deconditioning Current Visit: No Status: Acute Assessment and plan: July 12. Continue PT and OT intervention - Subjective Interval history: July 12. He has no new complaints. He had an episode of hypoxemia last evening. ABG and chest x-ray were ordered and were generally unremarkable. July 15. He has no new complaints. July 18. He has no new complaints. He saw Dr. Cruz this morning who gave him knee injections bilaterally. July 20. He has no new complaints. He states his knee pain is lessening after the injections 2 days ago July 23. He has no new complaints. He denies pain or dyspnea. - Constitutional Vitals: Temp Pulse Resp BP Pulse Ox 98.9 F 75 16 100/62 6 07/23/18 06:36 07/23/18 06:36 07/23/18 06:36 07/23/18 06:36 07/23/18 11:25 Exam: He is resting comfortably in bed and appears in no acute distress. His affect is bright and cheerful. I reviewed his medications and lab results. Internal Medicine: Result - Labs CBC & Chem 7: 07/19/18 05:41 07/19/18 05:41 - ABG Interpretation ABG results: ABG ABG pH 7.38 pH Units (7.32-7.45) 07/12/18 00:18 ABG pCO2 58 mmHg (35-45) H 07/12/18 00:18 ABG pO2 76 mmHg (85-104) L 07/12/18 00:18 ABG O2 Saturation 94 % (95-98) L 07/12/18 00:18 PT/INR, D-dimer PT 19.6 Seconds (9.4-12.1) H 07/19/18 05:41 Consult Discharge Plan - Plan Referrals: Mike Villar MD [Primary Care Provider] - 1 week
[2018-07-23] MEDS: *HR* Warfarin 2 MG TABLET PO SCH (18:33)
[2018-07-23] MEDS: Gabapentin 100 MG CAPSULE PO SCH (20:34)
[2018-07-24 05:32] LABS: Basophils % 0.1 %; Eosinophils # 0.4 K/mcL (0.0-0.6); Eosinophils % 2.8 %; Hematocrit 40.7 % (37.5-50.1); Hemoglobin 12.5 g/dL (12.9-16.9); Immature Granulocytes % 0.4 % (0-4); Lymphocytes # 1.2 K/mcL (0.6-4.6); Lymphocytes % 8.8 %; Mean Corpuscular HGB Conc 30.7 g/dL (31.6-35.5); Mean Corpuscular Hemoglobin 27.8 pg (28.0-33.3); Mean Corpuscular Volume 90.4 fL (83.0-100.0); Mean Platelet Volume 9.4 fL (9.4-12.4); Monocytes # 1.6 K/mcL (0.0-1.3); Monocytes % 11.3 %; Neutrophils # 10.7 K/mcL (1.6-8.9); Platelet Count 192 K/mcL (140-400); Red Cell Distribution Width 19.6 % (11.5-14.5); Segmented Neutrophils % 76.6 %
[2018-07-24 05:42] LABS: INR 1.5; Prothrombin Time 16.8 Seconds (9.4-12.1)
[2018-07-24 05:53] LABS: BUN/Creatinine Ratio 22 (6-26); Blood Urea Nitrogen 22 mg/dL (8-23); Calcium 8.4 mg/dL (8.6-10.3); Carbon Dioxide 29 mEq/L (23-29); Chloride 104 mEq/L (98-107); Glucose 87 mg/dL (70-105); Osmolality,Calculated 291 (280-300); Potassium 3.9 mEq/L (3.5-5.1); Sodium 139 mEq/L (136-145); eGFR For Non-African Americans > 60 (> 60)
[2018-07-24] MEDS: Ascorbic Acid 500 MG TABLET PO SCH (06:47)
[2018-07-24] MEDS: *HR* Amiodarone 200 MG TABLET PO SCH (09:08)
[2018-07-24] MEDS: Furosemide 40 MG TABLET PO SCH ×2 (09:08→17:31)
[2018-07-24] MEDS: Vitamin B Complex/Vit C/Vit E 1 EACH TABLET PO SCH (09:08)
[2018-07-24] MEDS: Multivit/Ca/Min/Fe/FA 1 TAB TABLET PO SCH (09:08)
[2018-07-24] MEDS: Folic Acid 1 MG TABLET PO SCH (09:08)
[2018-07-24] MEDS: Ammonium Lactate 30 APPL/225 GM BOTTLE TP SCH ×2 (09:08→20:51)
[2018-07-24] MEDS: acetaZOLAMIDE 250 MG TABLET PO SCH ×3 (09:08→20:52)
[2018-07-24] MEDS: Aspirin 81 MG TAB.CHEW PO SCH (09:08)
[2018-07-24] MEDS: *HR* Warfarin 2 MG TABLET PO SCH (17:31)
[2018-07-24] MEDS: traZODone 50 MG TABLET PO PRN (20:53)
[2018-07-24] MEDS: Gabapentin 100 MG CAPSULE PO SCH (20:53)
[2018-07-25] MEDS: Ascorbic Acid 500 MG TABLET PO SCH (06:50)
[2018-07-25] MEDS: Multivit/Ca/Min/Fe/FA 1 TAB TABLET PO SCH (07:49)
[2018-07-25] MEDS: acetaZOLAMIDE 250 MG TABLET PO SCH ×3 (07:49→20:27)
[2018-07-25] MEDS: Furosemide 40 MG TABLET PO SCH ×2 (07:49→17:03)
[2018-07-25] MEDS: Folic Acid 1 MG TABLET PO SCH (07:49)
[2018-07-25] MEDS: Aspirin 81 MG TAB.CHEW PO SCH (07:49)
[2018-07-25] MEDS: Vitamin B Complex/Vit C/Vit E 1 EACH TABLET PO SCH (07:49)
[2018-07-25] MEDS: *HR* Amiodarone 200 MG TABLET PO SCH (07:49)
[2018-07-25] MEDS: Ammonium Lactate 30 APPL/225 GM BOTTLE TP SCH ×2 (07:53→20:28)
[2018-07-25] MEDS: *HR* Methotrexate 2.5 MG TABLET PO SCH (09:23)
[2018-07-25] MEDS: *HR* Warfarin 2 MG TABLET PO SCH (17:03)
[2018-07-25] MEDS: Gabapentin 100 MG CAPSULE PO SCH (20:28)
[2018-07-26] MEDS: Ascorbic Acid 500 MG TABLET PO SCH (06:24)
[2018-07-26] MEDS: Aspirin 81 MG TAB.CHEW PO SCH (08:18)
[2018-07-26] MEDS: *HR* Amiodarone 200 MG TABLET PO SCH (08:18)
[2018-07-26] MEDS: Vitamin B Complex/Vit C/Vit E 1 EACH TABLET PO SCH (08:18)
[2018-07-26] MEDS: Folic Acid 1 MG TABLET PO SCH (08:18)
[2018-07-26] MEDS: Multivit/Ca/Min/Fe/FA 1 TAB TABLET PO SCH (08:18)
[2018-07-26] MEDS: Furosemide 40 MG TABLET PO SCH ×2 (08:18→15:46)
[2018-07-26] MEDS: acetaZOLAMIDE 250 MG TABLET PO SCH ×3 (08:18→20:23)
[2018-07-26] MEDS: Ammonium Lactate 30 APPL/225 GM BOTTLE TP SCH ×2 (08:19→20:24)
--- NOTE | 2018-07-26 18:03 | Internal Med Progress Note ---
Date of Encounter: 07/26/18 Time of Encounter: 17:50 - Assessment and plan (1) Multifocal pneumonia Current Visit: No Status: Acute Assessment and plan: July 12. Continue Levaquin and Augmentin with lactobacillus until 2017July 20. Discontinue antibiotics and probiotic. July 26. Recheck labs in a.m. (2) Paroxysmal A-fib Current Visit: No Status: Chronic Assessment and plan: July 12. Continue amiodarone and Coumadin. July 20. Coumadin dose subtherapeutic. Will increase and continue to monitor INR. Continue amiodarone. July 23. Recheck labs in a.m. July 26. Recheck labs in a.m. 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 Continue Lasix (4) Anemia Current Visit: No Status: Acute Assessment and plan: July 12. Continue ferrous sulfate with vitamin C July 26. Recheck labs in a.m. Qualifiers: Anemia type: unspecified type Qualified Code(s): D64.9 - Anemia, unspecified (5) CAD (coronary artery disease) Current Visit: No Status: Chronic Assessment and plan: July 12. Continue aspirin and Plavix Qualifiers: Coronary Disease-Associated Artery/Lesion type: [place] artery [place] vs. transplanted heart: [place] heart Associated angina: without angina Qualified Code(s): I25.10 - Atherosclerotic heart disease of [place] coronary artery without angina pectoris (6) Physical deconditioning Current Visit: No Status: Acute Assessment and plan: July 12. Continue PT and OT intervention - Subjective Interval history: July 12. He has no new complaints. He had an episode of hypoxemia last evening. ABG and chest x-ray were ordered and were generally unremarkable. July 15. He has no new complaints. July 18. He has no new complaints. He saw Dr. Cruz this morning who gave him knee injections bilaterally. July 20. He has no new complaints. He states his knee pain is lessening after the injections 2 days ago July 23. He has no new complaints. He denies pain or dyspnea. July 26. He had a home visit today on a day pass. He reports he was unable to climb a step at home and he and his fell onto concrete. He sustained a skin tear/abrasion of his left lower leg. He denies pain anywhere at this time. - Constitutional Vitals: Temp Pulse Resp BP Pulse Ox 98.2 F 87 16 127/73 93 07/26/18 06:48 07/26/18 06:48 07/26/18 06:48 07/26/18 06:48 07/26/18 06:48 Exam: He is resting comfortably in bed and appears in no acute distress. His affect is cheerful. His left lower leg is wrapped in gauze over the abrasion site. He does not appear to be in pain. I reviewed his medications and lab results. Internal Medicine: Result - Labs CBC & Chem 7: 07/24/18 04:25 07/24/18 04:25 - ABG Interpretation ABG results: ABG ABG pH 7.38 pH Units (7.32-7.45) 07/12/18 00:18 ABG pCO2 58 mmHg (35-45) H 07/12/18 00:18 ABG pO2 76 mmHg (85-104) L 07/12/18 00:18 ABG O2 Saturation 94 % (95-98) L 07/12/18 00:18 PT/INR, D-dimer PT 16.8 Seconds (9.4-12.1) H 07/24/18 04:25 - Impressions Impressions Knee X-Ray 07/26/18 14:52 IMPRESSION: 1. No acute osseous abnormality 2. Moderate tricompartmental osteoarthritis 3. D/ / 07/26/2018 15:27:24 [facility] Manley MD [facility] Interpreting Provider: Dejuan Manley MD Consult Discharge Plan - Plan Referrals: Mike Villar MD [Primary Care Provider] - 1 week
[2018-07-26] MEDS: *HR* Warfarin 2 MG TABLET PO SCH (18:12)
[2018-07-26] MEDS: Gabapentin 100 MG CAPSULE PO SCH (20:23)
[2018-07-27 05:59] LABS: Basophils % 0.1 %; Eosinophils # 0.3 K/mcL (0.0-0.6); Eosinophils % 2.6 %; Hemoglobin 12.5 g/dL (12.9-16.9); Immature Granulocytes % 0.5 % (0-4); Lymphocytes # 1.3 K/mcL (0.6-4.6); Mean Corpuscular HGB Conc 31.3 g/dL (31.6-35.5); Mean Corpuscular Hemoglobin 28.1 pg (28.0-33.3); Mean Corpuscular Volume 89.9 fL (83.0-100.0); Mean Platelet Volume 9.1 fL (9.4-12.4); Platelet Count 176 K/mcL (140-400); Red Blood Count 4.45 M/mcL (4.19-5.50); Red Cell Distribution Width 19.4 % (11.5-14.5); Segmented Neutrophils % 75.8 %
[2018-07-27 06:07] LABS: INR 1.6; Prothrombin Time 17.9 Seconds (9.4-12.1)
[2018-07-27 06:15] LABS: BUN/Creatinine Ratio 26 (6-26); Blood Urea Nitrogen 26 mg/dL (8-23); Calcium 8.2 mg/dL (8.6-10.3); Carbon Dioxide 29 mEq/L (23-29); Chloride 104 mEq/L (98-107); Glucose 99 mg/dL (70-105); Osmolality,Calculated 293 (280-300); Potassium 3.8 mEq/L (3.5-5.1); Sodium 139 mEq/L (136-145); eGFR For Non-African Americans > 60 (> 60)
[2018-07-27] MEDS: Ascorbic Acid 500 MG TABLET PO SCH (06:50)
[2018-07-27] MEDS: Aspirin 81 MG TAB.CHEW PO SCH (09:38)
[2018-07-27] MEDS: *HR* Amiodarone 200 MG TABLET PO SCH (09:38)
[2018-07-27] MEDS: Multivit/Ca/Min/Fe/FA 1 TAB TABLET PO SCH (09:39)
[2018-07-27] MEDS: Vitamin B Complex/Vit C/Vit E 1 EACH TABLET PO SCH (09:39)
[2018-07-27] MEDS: acetaZOLAMIDE 250 MG TABLET PO SCH ×3 (09:39→21:09)
[2018-07-27] MEDS: Furosemide 40 MG TABLET PO SCH ×2 (09:39→16:38)
[2018-07-27] MEDS: Folic Acid 1 MG TABLET PO SCH (09:39)
[2018-07-27] MEDS: Ammonium Lactate 30 APPL/225 GM BOTTLE TP SCH ×2 (09:43→20:55)
[2018-07-27] MEDS: *HR* Warfarin 3 MG TABLET PO SCH (16:38)
[2018-07-27] MEDS: Gabapentin 100 MG CAPSULE PO SCH (20:56)
[2018-07-28] MEDS: Ascorbic Acid 500 MG TABLET PO SCH (05:35)
[2018-07-28] MEDS: Multivit/Ca/Min/Fe/FA 1 TAB TABLET PO SCH (08:35)
[2018-07-28] MEDS: Furosemide 40 MG TABLET PO SCH ×2 (08:35→17:44)
[2018-07-28] MEDS: Cholecalciferol (D-3) 1,000 UNIT TABLET PO SCH (08:35)
[2018-07-28] MEDS: Aspirin 81 MG TAB.CHEW PO SCH (08:35)
[2018-07-28] MEDS: acetaZOLAMIDE 250 MG TABLET PO SCH ×3 (08:35→19:27)
[2018-07-28] MEDS: Folic Acid 1 MG TABLET PO SCH (08:35)
[2018-07-28] MEDS: Vitamin B Complex/Vit C/Vit E 1 EACH TABLET PO SCH (08:36)
[2018-07-28] MEDS: *HR* Amiodarone 200 MG TABLET PO SCH (08:36)
[2018-07-28] MEDS: Ammonium Lactate 30 APPL/225 GM BOTTLE TP SCH ×2 (08:36→19:27)
[2018-07-28] MEDS: *HR* Warfarin 3 MG TABLET PO SCH (17:44)
[2018-07-28] MEDS: Gabapentin 100 MG CAPSULE PO SCH (19:27)
[2018-07-29] MEDS: Ascorbic Acid 500 MG TABLET PO SCH (05:10)
[2018-07-29] MEDS: Folic Acid 1 MG TABLET PO SCH (08:28)
[2018-07-29] MEDS: Furosemide 40 MG TABLET PO SCH ×2 (08:28→15:53)
[2018-07-29] MEDS: Aspirin 81 MG TAB.CHEW PO SCH (08:28)
[2018-07-29] MEDS: Vitamin B Complex/Vit C/Vit E 1 EACH TABLET PO SCH (08:28)
[2018-07-29] MEDS: acetaZOLAMIDE 250 MG TABLET PO SCH ×3 (08:28→20:06)
[2018-07-29] MEDS: *HR* Amiodarone 200 MG TABLET PO SCH (08:28)
[2018-07-29] MEDS: Multivit/Ca/Min/Fe/FA 1 TAB TABLET PO SCH (08:28)
[2018-07-29] MEDS: Ammonium Lactate 30 APPL/225 GM BOTTLE TP SCH ×2 (08:31→20:07)
--- NOTE | 2018-07-29 15:30 | Internal Med Progress Note ---
Date of Encounter: 07/29/18 Time of Encounter: 15:20 - Assessment and plan (1) Multifocal pneumonia Current Visit: No Status: Acute Assessment and plan: July 12. Continue Levaquin and Augmentin with lactobacillus until 2017July 20. Discontinue antibiotics and probiotic. July 26. Recheck labs in a.m. July 29. WBC normal with no left shift 07/27/2018. (2) Paroxysmal A-fib Current Visit: No Status: Chronic Assessment and plan: July 12. Continue amiodarone and Coumadin. July 20. Coumadin dose subtherapeutic. Will increase and continue to monitor INR. Continue amiodarone. July 23. Recheck labs in a.m. July 26. Recheck labs in a.m. July 29. Coumadin dose increased to 3 mg daily after last pro time. Continue to monitor periodically. 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 Continue Lasix (4) Anemia Current Visit: No Status: Acute Assessment and plan: July 12. Continue ferrous sulfate with vitamin C July 26. Recheck labs in a.m. July 29. Hemoglobin stable at 12.5. Qualifiers: Anemia type: unspecified type Qualified Code(s): D64.9 - Anemia, unspecified (5) CAD (coronary artery disease) Current Visit: No Status: Chronic Assessment and plan: July 12. Continue aspirin and Plavix Qualifiers: Coronary Disease-Associated Artery/Lesion type: [place] artery [place] vs. transplanted heart: [place] heart Associated angina: without angina Qualified Code(s): I25.10 - Atherosclerotic heart disease of [place] coronary artery without angina pectoris (6) Physical deconditioning Current Visit: No Status: Acute Assessment and plan: July 12. Continue PT and OT intervention - Subjective Interval history: July 12. He has no new complaints. He had an episode of hypoxemia last evening. ABG and chest x-ray were ordered and were generally unremarkable. July 15. He has no new complaints. July 18. He has no new complaints. He saw Dr. Cruz this morning who gave him knee injections bilaterally. July 20. He has no new complaints. He states his knee pain is lessening after the injections 2 days ago July 23. He has no new complaints. He denies pain or dyspnea. July 26. He had a home visit today on a day pass. He reports he was unable to climb a step at home and he and his fell onto concrete. He sustained a skin tear/abrasion of his left lower leg. He denies pain anywhere at this time. July 29. He has no new complaints and feels well. His reports the ramp at home was completed yesterday by the contractor. - Constitutional Vitals: Temp Pulse Resp BP Pulse Ox 98.8 F 72 15 148/64 97 07/29/18 06:39 07/29/18 06:39 07/29/18 06:39 07/29/18 06:39 07/29/18 06:39 Exam: He is resting comfortably in bed and appears in no acute distress. His affect is bright and cheerful. I reviewed his medications and lab results. Internal Medicine: Result - Labs CBC & Chem 7: 07/27/18 05:13 07/27/18 05:13 - ABG Interpretation ABG results: ABG ABG pH 7.38 pH Units (7.32-7.45) 07/12/18 00:18 ABG pCO2 58 mmHg (35-45) H 07/12/18 00:18 ABG pO2 76 mmHg (85-104) L 07/12/18 00:18 ABG O2 Saturation 94 % (95-98) L 07/12/18 00:18 PT/INR, D-dimer PT 17.9 Seconds (9.4-12.1) H 07/27/18 05:13 Consult Discharge Plan - Plan Referrals: Mike Villar MD [Primary Care Provider] - 1 week
[2018-07-29] MEDS: *HR* Warfarin 3 MG TABLET PO SCH (17:59)
[2018-07-29] MEDS: Melatonin 3 MG TABLET PO PRN (20:06)
[2018-07-29] MEDS: Gabapentin 100 MG CAPSULE PO SCH (20:06)
[2018-07-30 06:15] LABS: Prothrombin Time 22.1 Seconds (9.4-12.1)
[2018-07-30] MEDS: Ascorbic Acid 500 MG TABLET PO SCH (07:24)
[2018-07-30] MEDS: acetaZOLAMIDE 250 MG TABLET PO SCH ×3 (07:52→19:56)
[2018-07-30] MEDS: Furosemide 40 MG TABLET PO SCH ×2 (07:53→16:58)
[2018-07-30] MEDS: Multivit/Ca/Min/Fe/FA 1 TAB TABLET PO SCH (07:54)
[2018-07-30] MEDS: Vitamin B Complex/Vit C/Vit E 1 EACH TABLET PO SCH (07:54)
[2018-07-30] MEDS: Aspirin 81 MG TAB.CHEW PO SCH (07:54)
[2018-07-30] MEDS: Folic Acid 1 MG TABLET PO SCH (07:54)
[2018-07-30] MEDS: *HR* Amiodarone 200 MG TABLET PO SCH (07:54)
[2018-07-30] MEDS: Ammonium Lactate 30 APPL/225 GM BOTTLE TP SCH ×2 (08:02→19:57)
[2018-07-30] MEDS: *HR* Warfarin 3 MG TABLET PO SCH (16:58)
[2018-07-30] MEDS: Gabapentin 100 MG CAPSULE PO SCH (19:56)
[2018-07-30] MEDS: Melatonin 3 MG TABLET PO PRN (19:56)
[2018-07-31] MEDS: Ascorbic Acid 500 MG TABLET PO SCH (06:59)
[2018-07-31] MEDS: Aspirin 81 MG TAB.CHEW PO SCH (08:28)
[2018-07-31] MEDS: *HR* Amiodarone 200 MG TABLET PO SCH (08:28)
[2018-07-31] MEDS: Ammonium Lactate 30 APPL/225 GM BOTTLE TP SCH ×2 (08:29→19:59)
[2018-07-31] MEDS: Vitamin B Complex/Vit C/Vit E 1 EACH TABLET PO SCH (08:29)
[2018-07-31] MEDS: Multivit/Ca/Min/Fe/FA 1 TAB TABLET PO SCH (08:29)
[2018-07-31] MEDS: acetaZOLAMIDE 250 MG TABLET PO SCH ×3 (08:29→19:58)
[2018-07-31] MEDS: Folic Acid 1 MG TABLET PO SCH (08:29)
[2018-07-31] MEDS: Furosemide 40 MG TABLET PO SCH ×2 (08:29→16:35)
--- NOTE | 2018-07-31 15:03 | Internal Med Progress Note ---
Date of Encounter: 07/31/18 Time of Encounter: 14:45 - Assessment and plan (1) Multifocal pneumonia Current Visit: No Status: Acute Assessment and plan: July 12. Continue Levaquin and Augmentin with lactobacillus until 2017July 20. Discontinue antibiotics and probiotic. July 26. Recheck labs in a.m. July 29. WBC normal with no left shift 07/27/2018. (2) Paroxysmal A-fib Current Visit: No Status: Chronic Assessment and plan: July 12. Continue amiodarone and Coumadin. July 20. Coumadin dose subtherapeutic. Will increase and continue to monitor INR. Continue amiodarone. July 23. Recheck labs in a.m. July 26. Recheck labs in a.m. July 29. Coumadin dose increased to 3 mg daily after last pro time. Continue to monitor periodically. July 31. INR therapeutic at 2.0 on 07/30/2018. Continue present dose Coumadin. 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 Continue Lasix July 31. BN peptide near normal at 105 on 07/27/2018. Continue present regimen (4) Anemia Current Visit: No Status: Acute Assessment and plan: July 12. Continue ferrous sulfate with vitamin C July 26. Recheck labs in a.m. July 29. Hemoglobin stable at 12.5. Qualifiers: Anemia type: unspecified type Qualified Code(s): D64.9 - Anemia, unspecified (5) CAD (coronary artery disease) Current Visit: No Status: Chronic Assessment and plan: July 12. Continue aspirin and Plavix Qualifiers: Coronary Disease-Associated Artery/Lesion type: [place] artery [place] vs. transplanted heart: [place] heart Associated angina: without angina Qualified Code(s): I25.10 - Atherosclerotic heart disease of [place] coronary artery without angina pectoris (6) Physical deconditioning Current Visit: No Status: Acute Assessment and plan: July 12. Continue PT and OT intervention - Subjective Interval history: July 12. He has no new complaints. He had an episode of hypoxemia last evening. ABG and chest x-ray were ordered and were generally unremarkable. July 15. He has no new complaints. July 18. He has no new complaints. He saw Dr. Cruz this morning who gave him knee injections bilaterally. July 20. He has no new complaints. He states his knee pain is lessening after the injections 2 days ago July 23. He has no new complaints. He denies pain or dyspnea. July 26. He had a home visit today on a day pass. He reports he was unable to climb a step at home and he and his fell onto concrete. He sustained a skin tear/abrasion of his left lower leg. He denies pain anywhere at this time. July 29. He has no new complaints and feels well. His reports the ramp at home was completed yesterday by the contractor. July 31. He has no new complaints. - Constitutional Vitals: Temp Pulse Resp BP Pulse Ox 98.8 F 87 17 110/61 92 07/31/18 06:52 07/31/18 06:52 07/31/18 06:52 07/31/18 06:52 07/31/18 08:36 Exam: He is resting comfortably in bed and appears in no acute distress. His affect is overall cheerful. I reviewed his medications and lab results. Internal Medicine: Result - Labs CBC & Chem 7: 07/27/18 05:13 07/27/18 05:13 - ABG Interpretation ABG results: ABG ABG pH 7.38 pH Units (7.32-7.45) 07/12/18 00:18 ABG pCO2 58 mmHg (35-45) H 07/12/18 00:18 ABG pO2 76 mmHg (85-104) L 07/12/18 00:18 ABG O2 Saturation 94 % (95-98) L 07/12/18 00:18 PT/INR, D-dimer PT 22.1 Seconds (9.4-12.1) H 07/30/18 05:10 Consult Discharge Plan - Plan Referrals: Mike Villar MD [Primary Care Provider] - 1 week
[2018-07-31] MEDS: *HR* Warfarin 3 MG TABLET PO SCH (16:35)
[2018-07-31] MEDS: Gabapentin 100 MG CAPSULE PO SCH (19:59)
[2018-08-01] MEDS: Ascorbic Acid 500 MG TABLET PO SCH (06:11)
[2018-08-01] MEDS: *HR* Methotrexate 2.5 MG TABLET PO SCH (10:12)
[2018-08-01] MEDS: Multivit/Ca/Min/Fe/FA 1 TAB TABLET PO SCH (10:13)
[2018-08-01] MEDS: *HR* Amiodarone 200 MG TABLET PO SCH (10:13)
[2018-08-01] MEDS: Ammonium Lactate 30 APPL/225 GM BOTTLE TP SCH ×2 (10:13→21:00)
[2018-08-01] MEDS: acetaZOLAMIDE 250 MG TABLET PO SCH ×3 (10:13→20:43)
[2018-08-01] MEDS: Folic Acid 1 MG TABLET PO SCH (10:13)
[2018-08-01] MEDS: Furosemide 40 MG TABLET PO SCH ×2 (10:13→17:17)
[2018-08-01] MEDS: Vitamin B Complex/Vit C/Vit E 1 EACH TABLET PO SCH (10:13)
[2018-08-01] MEDS: Aspirin 81 MG TAB.CHEW PO SCH (10:13)
[2018-08-01] MEDS: *HR* Warfarin 3 MG TABLET PO SCH (17:16)
[2018-08-01] MEDS: Gabapentin 100 MG CAPSULE PO SCH (20:43)
[2018-08-02] MEDS: Ascorbic Acid 500 MG TABLET PO SCH (05:35)
[2018-08-02] MEDS: Multivit/Ca/Min/Fe/FA 1 TAB TABLET PO SCH (09:38)
[2018-08-02] MEDS: *HR* Amiodarone 200 MG TABLET PO SCH (09:38)
[2018-08-02] MEDS: acetaZOLAMIDE 250 MG TABLET PO SCH (09:38)
[2018-08-02] MEDS: Furosemide 40 MG TABLET PO SCH ×2 (09:38→17:08)
[2018-08-02] MEDS: Aspirin 81 MG TAB.CHEW PO SCH (09:38)
[2018-08-02] MEDS: Folic Acid 1 MG TABLET PO SCH (09:38)
[2018-08-02] MEDS: Vitamin B Complex/Vit C/Vit E 1 EACH TABLET PO SCH (09:38)
[2018-08-02] MEDS: Ammonium Lactate 30 APPL/225 GM BOTTLE TP SCH (09:39)
--- NOTE | 2018-08-02 12:32 | Internal Med Progress Note ---
Date of Encounter: 08/02/18 Time of Encounter: 12:15 - Assessment and plan (1) Multifocal pneumonia Current Visit: No Status: Acute Assessment and plan: July 12. Continue Levaquin and Augmentin with lactobacillus until 2017July 20. Discontinue antibiotics and probiotic. July 26. Recheck labs in a.m. July 29. WBC normal with no left shift 07/27/2018. (2) Paroxysmal A-fib Current Visit: No Status: Chronic Assessment and plan: July 12. Continue amiodarone and Coumadin. July 20. Coumadin dose subtherapeutic. Will increase and continue to monitor INR. Continue amiodarone. July 23. Recheck labs in a.m. July 26. Recheck labs in a.m. July 29. Coumadin dose increased to 3 mg daily after last pro time. Continue to monitor periodically. July 31. INR therapeutic at 2.0 on 07/30/2018. Continue present dose Coumadin. August 02. Recheck labs in a.m. 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 Continue Lasix July 31. BN peptide near normal at 105 on 07/27/2018. Continue present regimen August 02. Decrease acetozolamide. Recheck labs in a.m. (4) Anemia Current Visit: No Status: Acute Assessment and plan: July 12. Continue ferrous sulfate with vitamin C July 26. Recheck labs in a.m. July 29. Hemoglobin stable at 12.5. Qualifiers: Anemia type: unspecified type Qualified Code(s): D64.9 - Anemia, unspecified (5) CAD (coronary artery disease) Current Visit: No Status: Chronic Assessment and plan: July 12. Continue aspirin and Plavix Qualifiers: Coronary Disease-Associated Artery/Lesion type: [place] artery [place] vs. transplanted heart: [place] heart Associated angina: without angina Qualified Code(s): I25.10 - Atherosclerotic heart disease of [place] coronary artery without angina pectoris (6) Physical deconditioning Current Visit: No Status: Acute Assessment and plan: July 12. Continue PT and OT intervention - Subjective Interval history: July 12. He has no new complaints. He had an episode of hypoxemia last evening. ABG and chest x-ray were ordered and were generally unremarkable. July 15. He has no new complaints. July 18. He has no new complaints. He saw Dr. Cruz this morning who gave him knee injections bilaterally. July 20. He has no new complaints. He states his knee pain is lessening after the injections 2 days ago July 23. He has no new complaints. He denies pain or dyspnea. July 26. He had a home visit today on a day pass. He reports he was unable to climb a step at home and he and his fell onto concrete. He sustained a skin tear/abrasion of his left lower leg. He denies pain anywhere at this time. July 29. He has no new complaints and feels well. His reports the ramp at home was completed yesterday by the contractor. July 31. He has no new complaints. August 02. He has no new complaints. - Constitutional Vitals: Temp Pulse Resp BP Pulse Ox 98.4 F 88 14 96/61 91 08/02/18 06:53 08/02/18 06:53 08/02/18 06:53 08/02/18 06:53 08/02/18 06:53 Exam: He is resting comfortably in bed and appears in no acute distress. His affect is bright and cheerful. His right heel shows an 6-8 mm eschar at the distal Achilles insertion area and a 6-8 mm clear fluid-filled vesicle just superior. I reviewed his medications and lab results. Internal Medicine: Result - Labs CBC & Chem 7: 07/27/18 05:13 07/27/18 05:13 - ABG Interpretation ABG results: ABG ABG pH 7.38 pH Units (7.32-7.45) 07/12/18 00:18 ABG pCO2 58 mmHg (35-45) H 07/12/18 00:18 ABG pO2 76 mmHg (85-104) L 07/12/18 00:18 ABG O2 Saturation 94 % (95-98) L 07/12/18 00:18 PT/INR, D-dimer PT 22.1 Seconds (9.4-12.1) H 07/30/18 05:10 Consult Discharge Plan - Plan Referrals: Mike Villar MD [Primary Care Provider] - 1 week
[2018-08-02] MEDS: *HR* Warfarin 3 MG TABLET PO SCH (17:08)
[2018-08-02] MEDS: Gabapentin 100 MG CAPSULE PO SCH (20:57)
[2018-08-03 05:33] LABS: Basophils % 0.2 %; Eosinophils # 0.4 K/mcL (0.0-0.6); Eosinophils % 3.3 %; Hematocrit 41.3 % (37.5-50.1); Hemoglobin 13.2 g/dL (12.9-16.9); Immature Granulocytes % 0.5 % (0-4); Lymphocytes # 1.9 K/mcL (0.6-4.6); Lymphocytes % 17.2 %; Mean Corpuscular Volume 87.7 fL (83.0-100.0); Mean Platelet Volume 8.6 fL (9.4-12.4); Monocytes # 0.9 K/mcL (0.0-1.3); Monocytes % 7.7 %; Neutrophils # 7.9 K/mcL (1.6-8.9); Platelet Count 188 K/mcL (140-400); Red Blood Count 4.71 M/mcL (4.19-5.50); Red Cell Distribution Width 19.1 % (11.5-14.5); Segmented Neutrophils % 71.1 %
[2018-08-03 05:46] LABS: Prothrombin Time 45.1 Seconds (9.4-12.1)
[2018-08-03 05:57] LABS: BUN/Creatinine Ratio 24 (6-26); Blood Urea Nitrogen 23 mg/dL (8-23); Calcium 8.3 mg/dL (8.6-10.3); Carbon Dioxide 27 mEq/L (23-29); Chloride 106 mEq/L (98-107); Glucose 100 mg/dL (70-105); Osmolality,Calculated 296 (280-300); Potassium 3.7 mEq/L (3.5-5.1); Sodium 141 mEq/L (136-145); eGFR For Non-African Americans > 60 (> 60)
[2018-08-03] MEDS: Ascorbic Acid 500 MG TABLET PO SCH (06:25)
[2018-08-03 06:54] VITALS: BP 123/69
[2018-08-03] MEDS: Multivit/Ca/Min/Fe/FA 1 TAB TABLET PO SCH (07:55)
[2018-08-03] MEDS: Aspirin 81 MG TAB.CHEW PO SCH (07:56)
[2018-08-03] MEDS: Folic Acid 1 MG TABLET PO SCH (07:56)
[2018-08-03] MEDS: Furosemide 40 MG TABLET PO SCH ×2 (07:56→17:20)
[2018-08-03] MEDS: *HR* Amiodarone 200 MG TABLET PO SCH (07:56)
[2018-08-03] MEDS: Vitamin B Complex/Vit C/Vit E 1 EACH TABLET PO SCH (07:56)
[2018-08-03] MEDS ORDERED: acetaZOLAMIDE 250 MG TABLET PO SCH (09:00)
[2018-08-03] MEDS ORDERED: Ammonium Lactate 30 APPL/225 GM BOTTLE TP SCH (09:00)
--- NOTE | 2018-08-04 09:06 | Discharge Summary ---
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 transplanted heart: [place] heart Associated angina: without angina Qualified Code(s): I25.10 - Atherosclerotic heart disease of [place] coronary artery without angina pectoris (6) Physical deconditioning Priority: Secondary Status: Acute Hospital course: Mr. Antoine is a 77 year old male who was discharged to [facility] swing bed following a July 03 [facility] hospitalization. 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 At [facility] he underwent bronchoscopy with BAL. Cultures and cytology were negative. He was given empiric IV vancomycin and Levaquin and later changed to IV Zosyn. He was discharged to [facility] swing bed on oral Levaquin and Augmentin for 9 days to complete a 14 day treatment course. Initial orders were written by the discharging physicians at [facility]. I saw him on July 11 and performed the swing bed history and physical. He continue Levaquin and Augmentin to complete a 14 day course. He remained afebrile and asymptomatic. WBC normalized by July 27 remained normal on follow-up labs August 03. He was maintained on Coumadin. His INR isabel to 4.0 on August 03 and Coumadin was held. BN peptide improved to normal level of 96 by August 03. He had ongoing physical therapy and occupational therapy intervention and made satisfactory progress. On August 03 he went home on a day pass and and to have on-site PT and OT home evaluation for care needs. He chose not to return to the hospital from the day pass. - Time Spent with Patient Total time spent providing and/or coordinating discharge services: - Discharge Medications Home Medications: Aspirin 81 mg PO DAILY #0 11/29/17 [History] Calcium Carbonate [Calcium] 600 mg PO DAILY 11/29/17 [History] Cholecalciferol (D-3) [Vitamin D] 5,000 unit PO SA #0 11/29/17 [History] Ferrous Sulfate 325 mg PO DAILY 11/29/17 [History] Folic Acid 1 mg PO DAILY 11/29/17 [History] Methotrexate [Otrexup] 7.5 mg PO WE 11/29/17 [History] Mv-Mn/FA/Vit K/Lycop/Lut/Coq10 [Daily Multivitamin Capsule] 1 tab PO DAILY #0 [History] Vitamin B Complex [B Complex] 1 tab PO DAILY #0 11/29/17 [History] Warfarin [Coumadin] 1 mg PO TUSA #0 11/29/17 [History] Melatonin [Melatin] 9 mg PO HS PRN 02/23/18 [History] Warfarin [Coumadin] 2 mg PO SUMOWETHFR 02/23/18 [History] traZODone [TraZODone] 50 - 100 mg PO HS PRN 02/23/18 [History] Acetaminophen [Tylenol] 650 mg PO Q6HR PRN tablet 02/25/18 [Rx] GuaiFENesin ER [Mucinex] 600 mg PO BID PRN tbbp.12hr 02/25/18 [Rx] Ipratropium/Albuterol Neb [Duoneb] 3 ml IH [id number] inhsol 02/25/18 [Rx] Amiodarone [Cordarone] 200 mg PO DAILY 06/04/18 [History] Atorvastatin [Lipitor] 40 mg PO HS 06/04/18 [History] Furosemide [Lasix] 40 mg PO BID 06/04/18 [History] Gabapentin [Neurontin] 200 mg PO HS 06/04/18 [History] Potassium Chloride [K-Tab ER] 40 meq PO BID 06/04/18 [History] Clopidogrel [Plavix] 75 mg PO DAILY 30 Days #30 tablet 07/01/18 [Rx] acetaZOLAMIDE [Diamox] 125 mg PO TID #90 tablet 07/09/18 [Rx] Amoxicillin/Clavulanate [Augmentin] 875 mg PO BIDWM 9 Days #18 tablet 07/10/18 [ Rx] levoFLOXacin [Levaquin] 750 mg PO DAILY 9 Days #9 tablet 07/10/18 [Rx] Allergies/Adverse Reactions: 3 Allergy/AdvReac Type Severity Reaction Status Date / Time sulfamethoxazole AdvReac Itching Verified 07/03/18 21:47 [From Bactrim] trimethoprim [From Bactrim] AdvReac Itching Verified 07/03/18 21:47 Date of admission: 07/10/18 14:48 Primary care physician: Mike Villar MD Consults: 07/10/18 15:12 Consult to Occupational Therapy [CONS] Routine Comment: patient admitted for swing bed Reason for Consult: Patient admitted at [facility] for multifocal pneumonia and sepsis. Does patient have active BEDREST order?: No Is patient medically & hemodynamically stable?: Yes Consult to Physical Therapy [CONS] Routine Comment: swing bed admission Reason for Consult: Patient admitted with multifocal pneumonia and sepsis at [facility]. Does patient have active BEDREST order?: No Is patient medically & hemodynamically stable?: Yes Consult to Telecine Operator [CONS] Routine Reason for SW Consult: patients projected stay is 3 weeks, swing - Constitutional Vitals: Temp Pulse Resp BP Pulse Ox 97.6 F 83 14 123/69 93 08/03/18 06:54 08/03/18 06:54 08/03/18 06:54 08/03/18 06:54 08/03/18 06:54 - Patient Status Disposition: Home, Self-Care - Discharge Instructions Follow Up With: Mike Villar MD [Primary Care Provider] - 1 week
--- NOTE | 2018-08-04 09:14 | Physician Discharge Referral ---
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 For more information, call the [place] Tobacco Quit Line at 2-696-NDWV-NOW. - Activity Activity Orders: Walker - Services Needed Following services are medically necessary services: Nursing, Home Health Aide, Physical Therapy, Occupational Therapy - Transfer Medications Home Medications: Aspirin 81 mg PO DAILY #0 11/29/17 [History] Calcium Carbonate [Calcium] 600 mg PO DAILY 11/29/17 [History] Cholecalciferol (D-3) [Vitamin D] 5,000 unit PO SA #0 11/29/17 [History] Ferrous Sulfate 325 mg PO DAILY 11/29/17 [History] Folic Acid 1 mg PO DAILY 11/29/17 [History] Methotrexate [Otrexup] 7.5 mg PO WE 11/29/17 [History] Mv-Mn/FA/Vit K/Lycop/Lut/Coq10 [Daily Multivitamin Capsule] 1 tab PO DAILY #0 [History] Vitamin B Complex [B Complex] 1 tab PO DAILY #0 11/29/17 [History] Warfarin [Coumadin] 1 mg PO TUSA #0 11/29/17 [History] Melatonin [Melatin] 9 mg PO HS PRN 02/23/18 [History] Warfarin [Coumadin] 2 mg PO SUMOWETHFR 02/23/18 [History] traZODone [TraZODone] 50 - 100 mg PO HS PRN 02/23/18 [History] Acetaminophen [Tylenol] 650 mg PO Q6HR PRN tablet 02/25/18 [Rx] GuaiFENesin ER [Mucinex] 600 mg PO BID PRN tbbp.12hr 02/25/18 [Rx] Ipratropium/Albuterol Neb [Duoneb] 3 ml IH [id number] inhsol 02/25/18 [Rx] Amiodarone [Cordarone] 200 mg PO DAILY 06/04/18 [History] Atorvastatin [Lipitor] 40 mg PO HS 06/04/18 [History] Furosemide [Lasix] 40 mg PO BID 06/04/18 [History] Gabapentin [Neurontin] 200 mg PO HS 06/04/18 [History] Potassium Chloride [K-Tab ER] 40 meq PO BID 06/04/18 [History] Clopidogrel [Plavix] 75 mg PO DAILY 30 Days #30 tablet 07/01/18 [Rx] acetaZOLAMIDE [Diamox] 125 mg PO TID #90 tablet 07/09/18 [Rx] Amoxicillin/Clavulanate [Augmentin] 875 mg PO BIDWM 9 Days #18 tablet 07/10/18 [ Rx] levoFLOXacin [Levaquin] 750 mg PO DAILY 9 Days #9 tablet 07/10/18 [Rx] Allergies/Adverse Reactions: 3 Allergy/AdvReac Type Severity Reaction Status Date / Time sulfamethoxazole AdvReac Itching Verified 07/03/18 21:47 [From Bactrim] trimethoprim [From Bactrim] AdvReac Itching Verified 07/03/18 21:47 Certification: Further, I certify that my clinical findings support that this patient is homebound (i.e. absences from home require considerable and taxing effort and are for medical reasons or yarsanism services or infrequently or short duration when for other reasons) because: Homebound Reason: Leaving home requires considerable and taxing effort due to condition (Dyspnea on exertion, weakness) Attestation: My signature below is to certify that this patient is under my care and that I, or nurse practitioner, or a physician's butcher assistant working with me, has a face-to -face encounter with this patient.
== END 2018-08-04 00:01 | disposition home or self-care (01) | DRG 194 ==
LOC: INPPIK 14:48
PROVIDERS: ADMIT Internal Medicine; ATTEND Internal Medicine